=== PATIENT | female | born 1935 | race Caucasian/White ===

== ENCOUNTER 2017-09-25 12:59 | Emergency (ER) | payer MEDICARE ==
[2017-09-25 14:04] LABS: Bilirubin Negative (Negative); Blood, Urine Negative (Negative); Clarity CLEAR (Clear); Glucose, Urine (Dipstick) Negative (Negative); Leukocyte Trace (Negative); Nitrite Negative (Negative); Protein, Urine (Dipstick) Negative (Neg-Trace); Specific Gravity, Urine 1.011 (1.002-1.036); Urobilinogen 0.2 mg/dL (0.2-1.0)
[2017-09-25 14:07] LABS: Bacteria/HPF None Seen HPF (None Seen); Hyaline Casts/LPF 0-3 HYALINE CAST LPF (0-3 Hyaline); Pathc Cast-AUWi Flag 0.27 (0-2.49); RBC/HPF 0-3 HPF (0-3); Squamous Epithelial 0-3 HPF (0-3); WBC/HPF 0-3 HPF (0-3)
[2017-09-25] MEDS ORDERED: Bacitracin Zinc 1 Packet ONE (14:36)
--- NOTE | 2017-09-25 14:40 | RAD ---
AP PELVIS 1 VIEW: Date: 09/25/17 HISTORY: 81-year-old female with history of pain following a fall last night. COMPARISON: 02/04/15. FINDINGS: Total left hip replacement with incomplete visualization of the femoral portion of the prosthesis on this pelvis. Bilateral iliac vascular stents. No evidence for acute fracture or dislocation. IMPRESSION: No acute fracture or dislocation. Total left hip replacement. POS: OFF
--- NOTE | 2017-09-25 14:54 | RAD ---
RIGHT SHOULDER 3 VIEWS: HISTORY: An 81-year-old female with a history of right shoulder pain following a fall last night. IMPRESSION: Mild degenerative changes. No acute fracture or dislocation. POS: OFF
--- NOTE | 2017-09-25 14:58 | RAD ---
PORTABLE CHEST: DATE: 09/25/17. PROVIDED CLINICAL HISTORY: Chest pain. FINDINGS: Comparison 10/17/16. Cardiac silhouette remains enlarged. There is tortuosity and ectasis of the tho racic aorta. Vascular calcification involves the aortic arch. No focal consolidation, pleural fluid , or pneumothorax apparent. The bony thorax appears grossly intact. IMPRESSION: Cardiomegaly without evidence for an acute cardiopulmonary process. POS: [facility]
== END 2017-09-25 15:30 | disposition home or self-care (01) ==
LOC: ERS 12:59
DX: S40.011A Contusion of right shoulder, initial encounter (principal); S70.02XA Contusion of left hip, initial encounter; S70.01XA Contusion of right hip, initial encounter; E03.9 Hypothyroidism, unspecified; E78.5 Hyperlipidemia, unspecified; F32.9 Major depressive disorder, single episode, unspecified; I12.9 Hypertensive chronic kidney disease with stage 1 through stage 4 chronic kidney disease, or unspecified chronic kidney disease; N18.9 Chronic kidney disease, unspecified; Z87.891 Personal history of nicotine dependence; Z86.73 Personal history of transient ischemic attack (TIA), and cerebral infarction without residual deficits; Z79.02 Long term (current) use of antithrombotics/antiplatelets; Z79.899 Other long term (current) drug therapy; W19.XXXA Unspecified fall, initial encounter
CPT/HCPCS: 71045; 72170; 81003; 81015

== ENCOUNTER 2018-07-20 17:47 | Emergency (ER) | payer MEDICARE ==
[2018-07-20 18:25] LABS: #Basophils 0.1 thou/uL (0.0-0.2); #Eosinphils 0.2 thou/uL (0.0-0.7); #Lymphocytes 1.9 thou/uL (1.20-3.40); #Monocytes 0.3 thou/uL (0.11-0.59); #Neutrophils 4.8 thou/uL (1.40-6.50); %Basophils 1.1 % (0.0-1.0); %Eosinophils 2.1 % (0.0-10.0); %Lymphocytes 26.4 % (21.0-51.0); %Monocytes 4.7 % (0.0-10.0); %Neutrophils 65.8 % (42.0-75.0); Hemoglobin 11.9 g/dL (12.0-16.0); Mean Corpuscular Hemoglobin 31.6 pg (27.0-31.0); Mean Corpuscular Volume 95.5 fL (78.0-98.0); Mean Platelet Volume 8.9 fL (7.4-10.4); Platelet Count 321 thou/uL (130-400); RBC Distribution Width 11.8 % (11.5-14.5); Red Blood Cell (RBC) Count 3.76 mill/uL (4.20-5.40); White Blood Cell (WBC) Count 7.3 thou/uL (4.8-10.8)
[2018-07-20 18:50] LABS: ALT (SGPT) 17 U/L (8-55); AST (SGOT) 19 U/L (5-34); Albumin 3.8 g/dL (3.4-4.8); Alkaline Phosphatase 98 U/L (40-150); Anion Gap 15 mmol/L (10-20); BUN (Urea Nitrogen) 44 mg/dL (9.8-20.1); Bilirubin, Total 0.3 mg/dL (0.2-1.2); CK (CPK) 77 U/L (29-168); Calc. Creatinine Clearance 0 mL/min (70-130); Carbon Dioxide 20 mmol/L (23-31); Chloride 106 mmol/L (98-107); Estimated GFR-MDRD 24; Glucose 132 mg/dL (83-110); Lipase 39 U/L (8-78); Potassium 4.5 mmol/L (3.5-5.1); Protein, Total 6.8 g/dL (6.0-8.3); Sodium 136 mmol/L (136-145)
[2018-07-20 18:53] LABS: CKMB 3.3 ng/mL (0-6.6)
[2018-07-20 19:17] LABS: Bilirubin Negative (Negative); Blood, Urine Negative (Negative); Clarity CLEAR (Clear); Glucose, Urine (Dipstick) Negative (Negative); Leukocyte Negative (Negative); Nitrite Negative (Negative); Protein, Urine (Dipstick) Negative (Neg-Trace); Specific Gravity, Urine 1.012 (1.002-1.036); Urobilinogen 0.2 mg/dL (0.2-1.0); pH, Urine 5.5 (5.0-9.0)
--- NOTE | 2018-07-20 19:57 | RAD ---
PORTABLE CHEST: 07/20/2018 PROVIDED CLINICAL HISTORY: Cough. COMPARISON: 09/25/2017 FINDINGS: The cardiac silhouette appears enlarged. Vascular calcification involves the aortic arch. Prominenc e of pulmonary interstitium is similar to the prior study. There is no focal consolidation, pleural fluid, or pneumothorax apparent. IMPRESSION: Cardiomegaly without evidence for an acute cardiopulmonary process. POS: [facility]
--- NOTE | 2018-07-20 20:09 | CT ---
CT ABDOMEN AND PELVIS WITHOUT CONTRAST: 07/20/2018 PROVIDED CLINICAL HISTORY: Pain. FINDINGS: The visualized lung bases are free of significant opacity. There is a small focal saccular aneurysm involving the distal thoracic aorta, just proximal to the level of the diaphragmatic hiatus. This me asures approximately 1.5 cm. The solid abdominal organs are suboptimally evaluated, in the absence of IV contrast material. Left adrenal adenoma is noted. Vascular calcifications are seen involving each kidney. Vascular calcific ation is noted involving the abdominal aorta. Renal stent material is seen on the right. Postoperative changes of a prior cholecystectomy are seen, with associated mild prominence of the com mon duct. There is no bowel dilatation, inflammatory fat stranding, free fluid, or lymph node enlargement appar ent. No evidence for free air. The appendix appears normal. Bilateral external iliac stent materia l is noted. No evidence for urinary tract calculi or hydronephrosis. The osseous structures demonstrate no concerning lytic or blastic lesions. Degenerative changes are seen involving the spine. IMPRESSION: 1. No evidence for urinary tract calculi or hydronephrosis. 2. 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 3. Other chronic findings as above. POS: [facility]
--- NOTE | 2018-07-21 14:28 | EKG ---
Test Reason : Blood Pressure : / mmHG Vent. Rate : 058 BPM Atrial Rate : 058 BPM P-R Int : 184 ms QRS Dur : 078 ms QT Int : 448 ms P-R-T Axes : 026 012 042 degrees QTc Int : 439 ms Sinus bradycardia Otherwise normal ECG Confirmed by DIANE MAURO, IKE ([id number]), newspaper or periodical editor FRANCESCO MARKHAM ([id number]) on 07/21/2018 2:28:22 PM Referred By: Confirmed By:IKE CONTRERAS MD
== END 2018-07-20 20:12 | disposition home or self-care (01) ==
LOC: ERS 17:47
DX: R41.82 Altered mental status, unspecified (principal); F03.90 Unspecified dementia, unspecified severity, without behavioral disturbance, psychotic disturbance, mood disturbance, and anxiety; E86.0 Dehydration; I25.10 Atherosclerotic heart disease of native coronary artery without angina pectoris; E03.9 Hypothyroidism, unspecified; E78.5 Hyperlipidemia, unspecified; I10 Essential (primary) hypertension; Z86.73 Personal history of transient ischemic attack (TIA), and cerebral infarction without residual deficits; F32.9 Major depressive disorder, single episode, unspecified; Z87.891 Personal history of nicotine dependence; Z79.899 Other long term (current) drug therapy
CPT/HCPCS: 36415; 51701; 71045; 74176; 80053; 81003; 82550; 82553; 83605; 83690; 83880; 84484; 85025; 87040; 87086; 93005; 96360; A4353

== ENCOUNTER 2018-09-23 13:45 | Outpatient (CLI) | payer MEDICARE | END 2018-09-23 13:46 | disposition home or self-care (01) | LOC: BICMAMMO 13:45 | PROVIDERS: ATTEND Family Medicine | DX: Z12.31 Encounter for screening mammogram for malignant neoplasm of breast (principal); R92.1 Mammographic calcification found on diagnostic imaging of breast; Z85.3 Personal history of malignant neoplasm of breast | CPT/HCPCS: 77063; 77067 ==

== ENCOUNTER 2018-11-28 21:49 | Inpatient (IN) | payer MEDICARE ==
[2018-11-28 23:03] LABS: ALT (SGPT) 19 U/L (8-55); AST (SGOT) 21 U/L (5-34); Albumin 3.4 g/dL (3.4-4.8); Alkaline Phosphatase 119 U/L (40-150); Anion Gap 15 mmol/L (10-20); BUN (Urea Nitrogen) 35 mg/dL (9.8-20.1); Bilirubin, Total 0.2 mg/dL (0.2-1.2); Calc. Creatinine Clearance 0 mL/min (70-130); Carbon Dioxide 23 mmol/L (23-31); Chloride 105 mmol/L (98-107); Estimated GFR-MDRD 34; Globulin 2.9 g/dL (2.4-3.5); Glucose 98 mg/dL (83-110); Potassium 5.2 mmol/L (3.5-5.1); Protein, Total 6.3 g/dL (6.0-8.3); Sodium 138 mmol/L (136-145)
[2018-11-28] MEDS ORDERED: Aspirin Chewable 81 MG TAB ONE (23:16)
[2018-11-28] MEDS ORDERED: Azithromycin 500 MG VIAL ONE (23:16)
[2018-11-29 01:57] LABS: Troponin I 0.019 ng/mL (< 0.028)
[2018-11-29] MEDS ORDERED: Sodium Chloride 0.45% 1,000 ML IV SCH (05:45)
[2018-11-29 05:58] LABS: Troponin I 0.025 ng/mL (< 0.028)
[2018-11-29 06:46] VITALS: BMI 22.1
[2018-11-29 09:19] LABS: Anion Gap 16 mmol/L (10-20); BUN (Urea Nitrogen) 31 mg/dL (9.8-20.1); Calc. Creatinine Clearance 30 mL/min (70-130); Carbon Dioxide 19 mmol/L (23-31); Chloride 105 mmol/L (98-107); Estimated GFR-MDRD 40; Glucose 105 mg/dL (83-110); Potassium 4.2 mmol/L (3.5-5.1); Sodium 136 mmol/L (136-145)
[2018-11-29] MEDS: Enoxaparin Sodium 30 MG/0.3 ML SYRINGE SC SCH (09:58)
[2018-11-29] MEDS: cefTRIAXone\\ROCEPHIN 1 GM in Sodium Chloride 0.9% 100 ML IVPB SCH (09:58)
[2018-11-29] MEDS: Amlodipine 5 MG TAB PO SCH (09:59)
[2018-11-29] MEDS: Clopidogrel Bisulfate 75 MG TAB PO SCH (09:59)
[2018-11-29] MEDS: hydrALAZINE 25 MG TAB PO SCH ×2 (10:00→21:03)
--- NOTE | 2018-11-29 10:03 | HP ---
PRIMARY CARE PHYSICIAN: Anayeli Tamayo DO CHIEF COMPLAINT: Increasing malaise and weakness. HISTORY OF PRESENT ILLNESS: The patient with history of dementia and some confusion, was unable to provide any significant history. Following history was extracted from review of medical record. The patient reportedly was brought to the hospital on November 28 by daughter due to worsening malaise, weakness, and poor appetite as well as poor oral intake since about 3 days prior to presentation. Daughter also reported that the patient had low SpO2 of 90 on room air at home prior to presentation to the ER. There was no history of fever, chills, or cough. The patient initially presented to [facility], where chest x-ray showed features suggestive of right middle and lower lobe pneumonia. The patient was given antibiotics and transported over to [facility] for further evaluation and treatment. The patient is confused, but is at least oriented to self and place. She denied fever, cough, nausea, vomiting, or abdominal pain. She, however, complained of being afraid. PAST MEDICAL HISTORY: 1. Dementia. 2. Left breast cancer. 3. Coronary artery disease, status post stent placement. 4. Hypertension. 5. Prior cerebrovascular accident. 6. CKD, stage 3 to 4. 7. Hypothyroidism. 8. Peripheral vascular disease. PAST SURGICAL HISTORY: 1. Left carotid endarterectomy. 2. Hip surgery. 3. Hysterectomy. 4. Tonsillectomy. 5. Left breast reconstruction. FAMILY HISTORY: This could not be obtained due to the patient's factors, but however, this seems to be unrelated and noncontributory. SOCIAL HISTORY: The patient lives with daughter. She is a former smoker, who quit about 10 years ago. Denied alcohol or recreational drug use. ALLERGIES: NO KNOWN DRUG ALLERGIES REPORTED. HOME MEDICATIONS: 1. Hydralazine 25 mg p.o. b.i.d. 2. Lisinopril 20 mg p.o. daily. 3. Plavix 75 mg p.o. daily. 4. Lexapro 10 mg p.o. daily at bedtime. 5. Zetia 10 mg p.o. daily at bedtime. 6. Levothyroxine 50 mcg p.o. daily in the morning. 7. Namenda 10 mg p.o. daily. 8. Simvastatin 40 mg p.o. daily at bedtime. REVIEW OF SYSTEMS: This is grossly limited due to the patient's factors. However, 12-point review of system performed was negative, other than pertinent positives and negatives included in the history of present illness. PHYSICAL EXAMINATION: VITAL SIGNS: Initial vitals on presentation to [facility] showed blood pressure of 143/69, pulse of 67, respiratory rate of 22, temperature of 98.7, and SpO2 of 90 on room air. Current vitals today at 7:56 a.m. on November 29, 2018, showed temperature of 98.2, pulse of 76, respiratory rate of 20, SpO2 of 94 on nasal cannula oxygen, and blood pressure of 184/84. GENERAL: Thin, elderly female, in no obvious distress. Afebrile. Anicteric. Acyanotic. HEENT: Normocephalic, atraumatic. Pupils are equal and reacting to light. Oral mucosa is moist. NECK: Supple, nontender with full range of motion. No masses noted. CARDIOVASCULAR: Regular rhythm and rate with normal heart sounds 1 and 2. No obvious murmur was appreciated. RESPIRATORY: Fair air entry bilaterally with no obvious crackle or rhonchi. Some transmitted sounds noted on right mid and lower zones. There is no use of accessory muscles. GASTROINTESTINAL: Full, soft, nontender, and nondistended with normal bowel sounds. EXTREMITIES: Grossly normal looking, atraumatic with no obvious edema, erythema, or cyanosis. NEUROLOGIC: Conscious and alert. Oriented at least to person and place. The patient has some confusion and memory lapses. Moves all extremities. SKIN: Grossly normal looking and appropriate for age with no erythema or rash. DIAGNOSTIC DATA: CBC showed WBC count of 9.5, hemoglobin of 12.6, MCV of 92.6, and platelets of 483. BMP performed on November 28, 2018 showed sodium 138, potassium 5.2, chloride 105, CO2 of 23, BUN 35, creatinine 1.48, calcium 9.0, total bilirubin 0.2, AST 21, ALT 19, alkaline phosphatase 119, total protein 6.3, albumin 3.4, and globulin 2.9. Of note, review of records showed that creatinine ranges from 1.4 to 2 previously. On presentation to the ED, the initial troponin was 0.03, which has trended down to normal with last troponin of 0.25. Lactic acid was 1.1. Urinalysis on November 28 was unremarkable with negative glucose, ketones, blood, nitrites, or leukocyte esterase. Chest x-ray performed on November 28, 2018, when compared with x-ray of July 20, 2018 showed infiltrates seen in the right upper lobe and right lung base. EKG showed normal sinus rhythm with no obvious ischemic changes. ASSESSMENT: 1. Acute respiratory insufficiency. 2. Right lower lobe pneumonia. 3. Hyperkalemia. This most likely is related to chronic kidney disease and use of CHARITY inhibitor. 4. Physical deconditioning. 5. Elevated troponin: Mild. Most likely due to demand ischemia from pneumonia. 6. Hypertension: Control is suboptimal. 7. Hypothyroidism, on replacement therapy. 8. History of dementia, on Namenda. 9. Chronic kidney disease, stage 3: Seems to be stable. PLAN: 1. We will start the patient on antibiotic therapy with Rocephin and azithromycin. We will also start bronchodilators and Mucinex. Oxygen supplementation will be provided and we will wean as tolerated. We will also hold lisinopril and start the patient on amlodipine for blood pressure control. We will recheck BMP and potassium and monitor renal function. 2. DVT prophylaxis with Lovenox will be provided. 3. Heart-healthy diet will be commenced. 4. Ethics: We will make the patient full code and she is not deemed to be competent at this time. We will discuss code status with the patient's daughter and adjust as needed. Diet as tolerated. Job ID: [id number]
[2018-11-29] MEDS: Azithromycin 500 MG in Sodium Chloride 0.9% 250 ML 250 ML IVPB SCH (11:21)
[2018-11-29] MEDS: Acetaminophen 325 MG TAB PO PRN (11:26)
[2018-11-29] MEDS: Ondansetron ODT 4 MG TAB PO PRN (12:54)
[2018-11-29] MEDS: Escitalopram Oxalate 10 mg Tablet PO SCH (21:02)
[2018-11-29] MEDS: Simvastatin 20 MG TAB PO SCH (21:02)
[2018-11-29] MEDS: Ezetimibe 10 MG TAB PO SCH (21:02)
[2018-11-29] MEDS: Melatonin 3 MG TAB PO PRN (21:05)
[2018-11-29] MEDS: guaiFENesin ER 600 MG TAB PO SCH (21:05)
[2018-11-30] MEDS: Levothyroxine Sodium 50 MCG TAB PO SCH (05:02)
[2018-11-30 05:17] LABS: #Basophils 0.1 thou/uL (0.0-0.2); #Eosinphils 0.3 thou/uL (0.0-0.7); #Lymphocytes 1.1 thou/uL (1.20-3.40); #Monocytes 0.7 thou/uL (0.11-0.59); #Neutrophils 6.6 thou/uL (1.40-6.50); %Basophils 0.6 % (0.0-1.0); %Eosinophils 2.9 % (0.0-10.0); %Lymphocytes 12.9 % (21.0-51.0); %Monocytes 8.1 % (0.0-10.0); %Neutrophils 75.4 % (42.0-75.0); Hemoglobin 9.7 g/dL (12.0-16.0); Mean Corpuscular HGB CONC 32.2 g/dL (32.0-36.0); Mean Corpuscular Hemoglobin 30.3 pg (27.0-31.0); Mean Corpuscular Volume 94.3 fL (78.0-98.0); Mean Platelet Volume 7.7 fL (7.4-10.4); Platelet Count 375 thou/uL (130-400); RBC Distribution Width 10.9 % (11.5-14.5); Red Blood Cell (RBC) Count 3.21 mill/uL (4.20-5.40); White Blood Cell (WBC) Count 8.8 thou/uL (4.8-10.8)
[2018-11-30 05:35] LABS: Anion Gap 13 mmol/L (10-20); BUN (Urea Nitrogen) 27 mg/dL (9.8-20.1); Calc. Creatinine Clearance 29 mL/min (70-130); Calcium 8.7 mg/dL (7.8-10.44); Carbon Dioxide 22 mmol/L (23-31); Chloride 104 mmol/L (98-107); Estimated GFR-MDRD 38; Glucose 102 mg/dL (83-110); Potassium 4.7 mmol/L (3.5-5.1); Sodium 134 mmol/L (136-145)
[2018-11-30 08:37] LABS: Iron 19 ug/dL (50-170); Iron Binding Capacity, Total 170 mcg/dL (265-497)
[2018-11-30] MEDS: cefTRIAXone\\ROCEPHIN 1 GM in Sodium Chloride 0.9% 100 ML IVPB SCH (08:42)
[2018-11-30] MEDS: guaiFENesin ER 600 MG TAB PO SCH ×2 (08:43→22:00)
[2018-11-30] MEDS: hydrALAZINE 25 MG TAB PO SCH ×2 (08:43→22:01)
[2018-11-30] MEDS: Clopidogrel Bisulfate 75 MG TAB PO SCH (08:43)
[2018-11-30] MEDS: Amlodipine 5 MG TAB PO SCH (08:44)
[2018-11-30] MEDS: Enoxaparin Sodium 30 MG/0.3 ML SYRINGE SC SCH (08:45)
[2018-11-30] MEDS ORDERED: Prevnar 13-Val Conj/PF 0.5 ML SYRINGE IM ONE ×2 (09:00→12:00)
[2018-11-30] MEDS: Azithromycin 500 MG in Sodium Chloride 0.9% 250 ML 250 ML IVPB SCH (09:45)
[2018-11-30] MEDS ORDERED: Azithromycin 250 MG TAB PO SCH (11:45)
--- NOTE | 2018-11-30 15:24 | PDOC.PN ---
- Subjective Encounter Start Date: 11/30/18 Encounter Start Time: 15:23 Subjective: No new problem -: Still on oxygen, -: No fever or chest pain. - Objective Resuscitation Status - Order Detail: 11/29/18 08:45 Resuscitation Status Routine Resuscitation Status: FULL: Full Resuscitation Vital Signs & Weight: Vital Signs (12 hours) Temp Pulse Resp BP BP Pulse Ox 11/30/18 13:30 94 L 11/30/18 12:43 91 L 11/30/18 11:53 97.4 F L 89 16 147/65 H 87 L 11/30/18 08:44 87 136/61 11/30/18 08:43 87 136/61 11/30/18 08:00 95 11/30/18 07:53 97.4 F L 77 24 H 128/67 95 11/30/18 07:20 74 16 11/30/18 04:00 98.5 F 76 18 136/67 94 L Weight Weight 125 lb 4 oz I&O: 11/29/18 11/30/18 12/01/18 06:59 06:59 06:59 Intake Total 1425 Output Total 1025 Balance 400 Result Diagrams: 11/30/18 04:47 11/30/18 04:47 Additional Labs: Accuchecks 11/30/18 13:07 POC Glucose 110 Phys Exam - Physical Examination Constitutional: NAD afebrile but fatigued HEENT: PERRLA Neck: supple fair air entry with transmitted sound Cardiovascular: RRR Gastrointestinal: soft, non-tender, no distention, positive bowel sounds Musculoskeletal: no edema, pulses present Neurological: non-focal awake and conversation. Memory lapses and confusion noted Moving all limbs but weakly Dx/Plan (1) Acute respiratory failure with hypoxia Code(s): J96.01 - ACUTE RESPIRATORY FAILURE WITH HYPOXIA Status: Acute (2) Right lower lobe pneumonia Code(s): J18.1 - LOBAR PNEUMONIA, UNSPECIFIED ORGANISM Status: Acute (3) Hyperkalemia Code(s): E87.5 - HYPERKALEMIA Status: Acute Comment: Resolved. (4) Positive blood culture Code(s): R78.81 - BACTEREMIA Status: Acute (5) CKD (chronic kidney disease) stage 3, GFR 30-59 ml/min Code(s): N18.3 - CHRONIC KIDNEY DISEASE, STAGE 3 (MODERATE) Status: Acute Comment: Possibility of EFRA is considered. 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 ? due to correction of hemoconcentration supereimposed on chronic iron deficiency anemia. Iron chemistry is suggestive of iron deficiency - Plan Continue antibiotics, bronchodilators, mucinex and oxygen supplementation -: Wean oxygen as tolerated. Encourage oral intake. -: Start gentle hydration given poor oral intake. -: PT to continue. Continue to hold SELENE cecily -: Repeat CBC, bmp and CXR in the am. * .
[2018-11-30] MEDS: Acetaminophen 325 MG TAB PO PRN (16:54)
[2018-11-30] MEDS: Simvastatin 20 MG TAB PO SCH (21:59)
[2018-11-30] MEDS: Ezetimibe 10 MG TAB PO SCH (21:59)
[2018-11-30] MEDS: Melatonin 3 MG TAB PO PRN (21:59)
[2018-11-30] MEDS: Escitalopram Oxalate 10 mg Tablet PO SCH (22:00)
[2018-12-01 05:09] LABS: #Basophils 0.1 thou/uL (0.0-0.2); #Eosinphils 0.3 thou/uL (0.0-0.7); #Lymphocytes 1.2 thou/uL (1.20-3.40); #Monocytes 0.9 thou/uL (0.11-0.59); #Neutrophils 7.4 thou/uL (1.40-6.50); %Basophils 0.7 % (0.0-1.0); %Eosinophils 3.3 % (0.0-10.0); %Lymphocytes 12.4 % (21.0-51.0); %Monocytes 8.7 % (0.0-10.0); Mean Corpuscular HGB CONC 30.3 g/dL (32.0-36.0); Mean Corpuscular Hemoglobin 28.7 pg (27.0-31.0); Mean Corpuscular Volume 94.7 fL (78.0-98.0); Mean Platelet Volume 7.7 fL (7.4-10.4); Platelet Count 411 thou/uL (130-400); Red Blood Cell (RBC) Count 3.47 mill/uL (4.20-5.40); White Blood Cell (WBC) Count 9.8 thou/uL (4.8-10.8)
[2018-12-01] MEDS: Levothyroxine Sodium 50 MCG TAB PO SCH (05:19)
[2018-12-01 05:26] LABS: Anion Gap 15 mmol/L (10-20); BUN (Urea Nitrogen) 26 mg/dL (9.8-20.1); Calc. Creatinine Clearance 26 mL/min (70-130); Calcium 8.6 mg/dL (7.8-10.44); Carbon Dioxide 22 mmol/L (23-31); Chloride 104 mmol/L (98-107); Estimated GFR-MDRD 34; Glucose 95 mg/dL (83-110); Potassium 4.6 mmol/L (3.5-5.1); Sodium 136 mmol/L (136-145)
[2018-12-01] MEDS: Clopidogrel Bisulfate 75 MG TAB PO SCH (09:45)
[2018-12-01] MEDS: cefTRIAXone\\ROCEPHIN 1 GM in Sodium Chloride 0.9% 100 ML IVPB SCH (09:45)
[2018-12-01] MEDS: guaiFENesin ER 600 MG TAB PO SCH ×2 (09:45→21:32)
[2018-12-01] MEDS: Amlodipine 5 MG TAB PO SCH (09:46)
[2018-12-01] MEDS: hydrALAZINE 25 MG TAB PO SCH ×2 (09:49→21:32)
[2018-12-01] MEDS: Enoxaparin Sodium 30 MG/0.3 ML SYRINGE SC SCH (09:55)
--- NOTE | 2018-12-01 10:11 | RAD ---
PA AND LATERAL VIEWS CHEST: HISTORY: Hypoxia, pneumonia. FINDINGS: Comparison is made with the exam of 11/28/2018. The heart size is normal. Patchy infiltrates in the right upper lobe and the right lung base are aga in noted. No pneumothoraces or large pleural effusions are seen. Small pleural effusions may be pre sent posteriorly. IMPRESSION: Pneumonia. POS: [facility]
[2018-12-01] MEDS: Ondansetron PF 4 MG/2 ML Vial IVP PRN (10:36)
[2018-12-01] MEDS: Azithromycin 500 MG in Sodium Chloride 0.9% 250 ML 250 ML IVPB SCH (10:39)
[2018-12-01] MEDS: Acetaminophen 325 MG TAB PO PRN (16:54)
--- NOTE | 2018-12-01 17:24 | PDOC.PN ---
- Subjective Encounter Start Date: 12/01/18 Encounter Start Time: 11:23 Subjective: Seen and examined. -: Still coughing and on oxygen. -: denied fever or chest pain. - Objective Resuscitation Status - Order Detail: 11/29/18 08:45 Resuscitation Status Routine Resuscitation Status: FULL: Full Resuscitation Vital Signs & Weight: Vital Signs (12 hours) Temp Pulse Pulse Pulse Resp BP BP 12/01/18 15:38 99.1 F 87 28 H 12/01/18 12:52 82 16 12/01/18 12:00 99 F 95 36 H 12/01/18 10:56 93 87 135/64 12/01/18 09:49 87 133/66 12/01/18 09:46 87 133/66 12/01/18 08:00 12/01/18 07:50 99.1 F 96 16 12/01/18 06:37 84 16 12/01/18 05:51 BP BP Pulse Ox 12/01/18 15:38 114/64 85 L 12/01/18 12:52 97 12/01/18 12:00 109/57 L 92 L 12/01/18 10:56 119/57 L 12/01/18 09:49 12/01/18 09:46 12/01/18 08:00 92 L 12/01/18 07:50 130/63 89 L 12/01/18 06:37 93 L 12/01/18 05:51 93 L Weight Weight 125 lb 4 oz I&O: 11/30/18 12/01/18 12/02/18 06:59 06:59 06:59 Intake Total 1425 718 353 Output Total 1025 750 Balance 400 -32 353 Result Diagrams: 12/01/18 04:37 12/01/18 04:37 Phys Exam - Physical Examination Constitutional: NAD afebrile HEENT: moist MMs Neck: supple fair air entrty with right sided crackles and few scattered rhonchi Cardiovascular: RRR Gastrointestinal: soft, non-tender, no distention, positive bowel sounds Musculoskeletal: no edema, pulses present Neurological: non-focal, moves all 4 limbs awake and conversational. Memory lapses noted Dx/Plan (1) Acute respiratory failure with hypoxia Code(s): J96.01 - ACUTE RESPIRATORY FAILURE WITH HYPOXIA Status: Acute (2) Right lower lobe pneumonia Code(s): J18.1 - LOBAR PNEUMONIA, UNSPECIFIED ORGANISM Status: Acute (3) Hyperkalemia Code(s): E87.5 - HYPERKALEMIA Status: Acute Comment: Resolved. (4) Positive blood culture Code(s): R78.81 - BACTEREMIA Status: Acute (5) CKD (chronic kidney disease) stage 3, GFR 30-59 ml/min Code(s): N18.3 - CHRONIC KIDNEY DISEASE, STAGE 3 (MODERATE) Status: Acute Comment: Possibility of EFRA is considered. 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 ? due to correction of hemoconcentration supereimposed on chronic iron deficiency anemia. Iron chemistry is suggestive of iron deficiency - Plan Broadened antibiotics by substituting ceftriaxone/azithromyci with levaquin -: As CXR showed persistent if not worse Right sided pneumonia -: and there has been no significant improvement -: Continue other treatments. * .
[2018-12-01] MEDS: Budesonide 0.5 MG/2 ML NEB INH SCH (19:00)
[2018-12-01] MEDS: Simvastatin 20 MG TAB PO SCH (21:32)
[2018-12-01] MEDS: Ezetimibe 10 MG TAB PO SCH (21:32)
[2018-12-02] MEDS: Melatonin 3 MG TAB PO PRN ×2 (01:09→21:45)
[2018-12-02] MEDS: Acetaminophen 325 MG TAB PO PRN ×2 (01:12→21:44)
[2018-12-02] MEDS ORDERED: traMADol HCl 50 MG TAB PO SCH (02:30)
[2018-12-02] MEDS ORDERED: Sodium Chloride 0.9% 1,000 ML IV SCH (02:45)
[2018-12-02] MEDS: Levothyroxine Sodium 50 MCG TAB PO SCH (06:01)
[2018-12-02 06:15] LABS: Anion Gap 12 mmol/L (10-20); BUN (Urea Nitrogen) 26 mg/dL (9.8-20.1); Calc. Creatinine Clearance 24 mL/min (70-130); Calcium 8.7 mg/dL (7.8-10.44); Carbon Dioxide 24 mmol/L (23-31); Chloride 102 mmol/L (98-107); Estimated GFR-MDRD 31; Glucose 103 mg/dL (83-110); Potassium 4.6 mmol/L (3.5-5.1); Sodium 133 mmol/L (136-145)
[2018-12-02] MEDS: Budesonide 0.5 MG/2 ML NEB INH SCH ×2 (06:24→19:29)
[2018-12-02] MEDS: Sodium Chloride 0.9% 1,000 ML IV SCH ×2 (09:42→19:24)
[2018-12-02] MEDS: hydrALAZINE 25 MG TAB PO SCH (09:42)
[2018-12-02] MEDS: Amlodipine 5 MG TAB PO SCH (09:44)
[2018-12-02] MEDS: Enoxaparin Sodium 30 MG/0.3 ML SYRINGE SC SCH (09:45)
[2018-12-02] MEDS: Clopidogrel Bisulfate 75 MG TAB PO SCH (09:45)
[2018-12-02] MEDS: guaiFENesin ER 600 MG TAB PO SCH ×2 (10:32→21:45)
[2018-12-02] MEDS ORDERED: guaiFENesin ER 600 MG TAB PO SCH ×2 (10:59→11:15)
--- NOTE | 2018-12-02 11:04 | PDOC.PN ---
- Subjective Encounter Start Date: 12/02/18 Encounter Start Time: 11:00 Subjective: Feeling better. More alert today. -: No fever. Still coughing but afebrile. - Objective Resuscitation Status - Order Detail: 11/29/18 08:45 Resuscitation Status Routine Resuscitation Status: FULL: Full Resuscitation Vital Signs & Weight: Vital Signs (12 hours) Temp Pulse Pulse Resp BP BP BP 12/02/18 09:51 79 107/54 L 12/02/18 09:44 79 107/54 L 12/02/18 09:42 79 107/54 L 12/02/18 07:56 98.3 F 80 22 H 107/50 L 12/02/18 06:24 12/02/18 06:23 74 20 12/02/18 04:00 97.9 F 75 18 100/53 L 12/02/18 02:29 98 F 103/52 L 12/02/18 01:10 24 H 12/02/18 00:00 98.3 F 83 20 136/65 Pulse Ox 12/02/18 09:51 12/02/18 09:44 12/02/18 09:42 12/02/18 07:56 92 L 12/02/18 06:24 91 L 12/02/18 06:23 91 L 12/02/18 04:00 92 L 12/02/18 02:29 12/02/18 01:10 93 L 12/02/18 00:00 91 L Weight Weight 125 lb 4 oz I&O: 12/01/18 12/02/18 12/03/18 06:59 06:59 06:59 Intake Total 718 1736 Output Total 750 650 Balance -32 1086 Result Diagrams: 12/01/18 04:37 12/02/18 05:19 Phys Exam - Physical Examination Constitutional: NAD afebrile HEENT: PERRLA, moist MMs Neck: supple Respiratory: no rhonchi fair air entry with crackles mostly on the right Cardiovascular: RRR Gastrointestinal: soft, non-tender, no distention, positive bowel sounds Musculoskeletal: no edema, pulses present awake and conversational. Memory lapses noted. Dx/Plan (1) Acute respiratory failure with hypoxia Code(s): J96.01 - ACUTE RESPIRATORY FAILURE WITH HYPOXIA Status: Acute Comment: Still on oxygen (2) Right lower lobe pneumonia Code(s): J18.1 - LOBAR PNEUMONIA, UNSPECIFIED ORGANISM Status: Acute (3) Hyperkalemia Code(s): E87.5 - HYPERKALEMIA Status: Acute Comment: Resolved. (4) Positive blood culture Code(s): R78.81 - BACTEREMIA Status: Acute (5) CKD (chronic kidney disease) stage 3, GFR 30-59 ml/min Code(s): N18.3 - CHRONIC KIDNEY DISEASE, STAGE 3 (MODERATE) Status: Acute Comment: Possibility of EFRA is considered. Creat is trending up. 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 ? due to correction of hemoconcentration supereimposed on chronic iron deficiency anemia. Iron chemistry is suggestive of iron deficiency (13) Paroxysmal atrial fibrillation Code(s): I48.0 - PAROXYSMAL ATRIAL FIBRILLATION Status: Acute Comment: Questionable. Lasted for 12 seconds noticed on tele. Occured while patient was getting bed bath. She also has Pneumonia on treatment. Rate remained controlled. - Plan Continue levaquin -: increase mucinex to 1200 bid -: Wean off oxygen. -: Start IVF due to increasing creat/bun. -: Consult cardiology re: anticoagulation for A fib. * .
[2018-12-02 11:43] LABS: Troponin I 0.013 ng/mL (< 0.028)
--- NOTE | 2018-12-02 14:58 | PQF ---
CLINICAL DOCUMENTATION IMPROVEMENT CLARIFICATION FORM: ICD-10 Updated PLEASE DO AN ADDENDUM TO THE PROGRESS NOTE WITH ANY DOCUMENTATION UPDATES OR ADDITIONS AND CARRY THROUGH TO DC SUMMARY. THANK YOU. DATE: 12/02/2018 ATTN: Dr. Marquez Please exercise your independent, professional judgment in responding to the clarification form. Clinical indicators are provided on the bottom of this form for your review Please check appropriate box(es): [ ] Sepsis due to Pneumonia. [ ] Severe sepsis with acute organ dysfunction of: (Examples: respiratory failure, encephalopathy, acute kidney failure,) [ ] Localized infection without sepsis [ X ] Other diagnosis :Right lower lobe Pneumonia [ ] Unable to determine In addition, please specify: Present on Admission (POA): [ X ] Yes [ ] No [ ] Unable to determine For continuity of documentation, please document condition throughout progress notes and discharge summary. Thank You. CLINICAL INDICATORS - SIGNS / SYMPTOMS / LABS H&P: Resp. rate of 22. SpO2 of 90 on room air. PN 11/30: Acute respiratory failure with hypoxia Right lower lobe pneumonia Positive blood culture CKD 3. Possibility of EFRA is considered. PN 12/01: Right lower lobe pneumonia Broadened antibiotics by substituting ceftriaxone/azithromycin with Levaquin -As CXR showed persistent if not worse Right sided pneumonia RISKS: H&P 11/29: 83 yo. Hx of Dementia. CAD. CKD 3-4. Right lower lobe pneumonia. TREATMENT: MAR: Order 11/29-12/01: Rocephin 1 gm IV. MAR: Order 11/29-12/01: Zithromax 500mg IV MAR: Order 12/02: Levaquin 450mg IV q 48 hrs MAR: Order 12/02: NS IV 100 ml/hr Thank you, Blanka (This form is maintained as a part of the permanent medical record) 2014 [employer]. All Rights Reserved Blanka Rayo RN, BSN [email or web address] Office: [phone] [facility]
[2018-12-02] MEDS: Ondansetron PF 4 MG/2 ML Vial IVP PRN (20:59)
[2018-12-02] MEDS: Ezetimibe 10 MG TAB PO SCH (21:45)
[2018-12-02] MEDS: Simvastatin 20 MG TAB PO SCH (21:45)
--- NOTE | 2018-12-03 01:10 | CON ---
DATE OF CONSULTATION: SUBJECTIVE: Olinda Avila is an 83-year-old white female, admitted for respiratory insufficiency. She has a longstanding cardiac history and underwent cardiac catheterization in May [address] Cuenca. She had a totally occluded proximal right coronary artery that filled retrograde, ejection fraction was 70% . She underwent another catheterization by Dr. Cuenca in July 2000, which essentially showed the same findings. In 2005, she underwent catheterization by Dr. Villareal with similar findings. She had a normal nuclear scan in February 2011. In October 2013, she had a right-sided stroke. I initially assumed her care in February 2016. Pertinent recent evaluations are echocardiogram in August 2016, which revealed ejection fraction of 55% to 60% with mild mitral regurgitation, aortic valve sclerosis, mild aortic regurgitation, mild tricuspid regurgitation, mild pulmonic regurgitation. She underwent cardiac PET scan in May 2018, which was normal without evidence of ischemia. She now was admitted with increased shortness of breath, felt to have pneumonia and is being treated with antibiotics. She cannot give an adequate history. She denies any chest discomfort or palpitations to me. She did have 11-second run of probable atrial fibrillation which was very irregularly irregular with rate up to 150 to 160. PAST MEDICAL HISTORY: Stroke in October 2013 from attempted carotid stent procedure; chronic kidney disease; hypothyroidism; hypertension; dyslipidemia; peripheral vascular disease, status post iliac stents; hypertension; coronary artery disease; dementia. PAST SURGICAL HISTORY: Bilateral iliac stent placement, left carotid endarterectomy, hip surgery, hysterectomy, tonsillectomy, left breast reconstruction. SOCIAL HISTORY: She smoked one pack per day, but stopped 2 to 3 years ago. She does not drink. MEDICATIONS: 1. Aspirin 81 daily. 2. Plavix 75 daily. 3. Hydralazine 25 b.i.d. 4. Lisinopril 20 mg daily. 5. Lexapro 10 mg at bedtime. 6. Zetia 10 mg at bedtime. 7. Levothyroxine 50 mcg daily. 8. Namenda 10 mg daily. 9. Simvastatin 40 at bedtime. ALLERGIES: NONE. REVIEW OF SYSTEMS: Difficult to obtain due to patient's baseline dementia. PHYSICAL EXAMINATION: VITAL SIGNS: Blood pressure 102/49, pulse of 88. HEENT: PERRL. NECK: Supple. CHEST: Reveals occasional rhonchi. CARDIOVASCULAR EXAMINATION: S1, S2 normal without any S3, S4, or murmurs. ABDOMEN: Normal bowel sounds without tenderness, organomegaly. EXTREMITIES: Reveal no clubbing, cyanosis, or edema. NEUROLOGIC: Grossly intact. SKIN: Warm and dry. LABORATORY DATA: EKG revealed normal sinus rhythm, occasional PVC on admission. Chest x-ray revealed infiltrates in the right upper lobe and right lung base consistent with pneumonia. White count 9800, hemoglobin 10.0, hematocrit 32.9, platelets 411,000. Sodium 133, potassium 4.6, chloride 102, carbon dioxide 24, BUN 26, creatinine 1.61. Troponin I is normal. IMPRESSION: 1. Short run of paroxysmal atrial fibrillation approximately 10 to 11 seconds. 2. History of hypertension. However, she has been borderline hypotensive thus far during this admission. 3. Chronic kidney disease, lisinopril has been discontinued this admission. 4. Hypercholesterolemia. 5. History of coronary artery disease with totally occluded right coronary artery. 6. Peripheral vascular disease with carotid endarterectomy, bilateral iliac stents. 7. Dementia. 8. Hypothyroidism. 9. Anxiety and depression. 10. Former smoker. PLAN: The patient's current blood pressure is low, which certainly may contribute to decreased renal perfusion and increase in her creatinine and BUN. I would simplify her current regimen and would discontinue the amlodipine and the hydralazine. Instead, would just place her on low-dose beta cecily, which hopefully will suppress her atrial arrhythmias. Job ID: [id number] [facility]
[2018-12-03] MEDS: Acetaminophen 325 MG TAB PO PRN ×3 (01:30→18:37)
[2018-12-03] MEDS: Ondansetron PF 4 MG/2 ML Vial IVP PRN (04:52)
[2018-12-03 05:24] LABS: Anion Gap 13 mmol/L (10-20); BUN (Urea Nitrogen) 28 mg/dL (9.8-20.1); Calc. Creatinine Clearance 23 mL/min (70-130); Calcium 8.8 mg/dL (7.8-10.44); Carbon Dioxide 22 mmol/L (23-31); Chloride 104 mmol/L (98-107); Estimated GFR-MDRD 29; Glucose 89 mg/dL (83-110); Sodium 134 mmol/L (136-145)
[2018-12-03] MEDS: Budesonide 0.5 MG/2 ML NEB INH SCH ×2 (06:02→18:46)
[2018-12-03] MEDS: Sodium Chloride 0.9% 1,000 ML IV SCH (06:13)
[2018-12-03] MEDS: Levothyroxine Sodium 50 MCG TAB PO SCH (06:13)
--- NOTE | 2018-12-03 08:55 | PDOC.PN ---
- Subjective Encounter Start Date: 12/03/18 Encounter Start Time: 08:53 Subjective: Chest congestion and Hypoxia is worse. -: remained afebrile - Objective Resuscitation Status - Order Detail: 11/29/18 08:45 Resuscitation Status Routine Resuscitation Status: FULL: Full Resuscitation Vital Signs & Weight: Vital Signs (12 hours) Temp Pulse Resp BP Pulse Ox 12/03/18 07:40 98.2 F 84 20 146/68 H 91 L 12/03/18 06:02 77 18 95 12/03/18 03:56 98.0 F 68 19 109/54 L 94 L 12/03/18 00:00 98.7 F 79 20 141/63 H 95 12/02/18 20:59 93 L Weight Weight 125 lb 4 oz I&O: 12/02/18 12/03/18 12/04/18 06:59 06:59 06:59 Intake Total 1736 Output Total 650 450 Balance 1086 -450 Result Diagrams: 12/01/18 04:37 12/03/18 04:38 Phys Exam - Physical Examination mildrespiratory distress HEENT: moist MMs Neck: no JVD, supple fair air entry with prolonged expiration, rhonchi andtransmitted sound Cardiovascular: RRR Gastrointestinal: soft, non-tender, no distention Musculoskeletal: no edema, pulses present Neurological: non-focal, moves all 4 limbs conscious and alert. Dx/Plan (1) Acute respiratory failure with hypoxia Code(s): J96.01 - ACUTE RESPIRATORY FAILURE WITH HYPOXIA Status: Acute Comment: Still on oxygen. Seem to be geetting worse andrequiring more oxygen. (2) Right lower lobe pneumonia Code(s): J18.1 - LOBAR PNEUMONIA, UNSPECIFIED ORGANISM Status: Acute (3) Hyperkalemia Code(s): E87.5 - HYPERKALEMIA Status: Acute Comment: Resolved. (4) Positive blood culture Code(s): R78.81 - BACTEREMIA Status: Acute Comment: Grew staph epiderdimidisin 1/2 andstaph capitis in the other 1/2. Considered contaminant. (5) CKD (chronic kidney disease) stage 3, GFR 30-59 ml/min Code(s): N18.3 - CHRONIC KIDNEY DISEASE, STAGE 3 (MODERATE) Status: Acute Comment: Stable. 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 ? due to correction of hemoconcentration supereimposed on chronic iron deficiency anemia. Iron chemistry is suggestive of iron deficiency (13) Paroxysmal atrial fibrillation Code(s): I48.0 - PAROXYSMAL ATRIAL FIBRILLATION Status: Acute Comment: Questionable. Lasted for 12 seconds noticed on tele. Occured while patient was getting bed bath. She also has Pneumonia on treatment. Rate remained controlled. - Plan Will DC IVF due to worsemning chest congestion. -: Get CT chest without contrast and echo -: Get Respiratory paneland repeat blood cultures -: Start oral prednisone. Continue antibiotics and breathing treatments. -: Will d/w cardiology about care home anticoagulation. PT to continue. * .
[2018-12-03] MEDS: Enoxaparin Sodium 30 MG/0.3 ML SYRINGE SC SCH (09:23)
[2018-12-03] MEDS: guaiFENesin ER 600 MG TAB PO SCH ×2 (09:24→21:45)
[2018-12-03] MEDS: Aspirin 81 mg Enteric Coated Tablet PO SCH (09:24)
[2018-12-03] MEDS: Clopidogrel Bisulfate 75 MG TAB PO SCH (09:25)
[2018-12-03] MEDS ORDERED: predniSONE 20 MG TAB PO SCH ×2 (10:00→17:00)
--- NOTE | 2018-12-03 11:09 | CT ---
Exam: Chest CT scan without IV contrast: HISTORY: Worsening shortness of breath Findings: Bilateral pleural effusions, small on the left and moderate on the right. Extensive alveolar and inte rstitial parenchymal changes in the right upper lobe and right lower lobe worrisome for pneumonia. There is a 3.5 cm diameter right hilar mass. In addition there are abnormal lymph nodes including a r ight paratracheal node measuring 2.2 cm, and an AP window node measuring approximately 1.4 cm, and subcarinal lymph node measuring 2.3 cm in short axis evidence for adenopathy. 1.8 cm diameter left pr evascular node. Atherosclerosis of the aorta with extensive calcification. 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 Multip le bilateral pulmonary metastasis up to 1 cm in size. IMPRESSION: Extensive right upper lobe and right lower lobe alveolar and interstitial parenchymal changes worriso me for pneumonia. There is probably some component of atelectasis as well. Poorly circumscribed right hilar mass. Mediastinal adenopathy. Bilateral pulmonary metastasis.
[2018-12-03] MEDS: Ondansetron ODT 4 MG TAB PO PRN (12:50)
[2018-12-03] MEDS: Furosemide 40 MG/4 ML VIAL ONE ×2 (13:19→13:33)
[2018-12-03] MEDS ORDERED: Furosemide 40 MG/4 ML VIAL SLOW IVP SCH (13:30)
[2018-12-03] MEDS ORDERED: Morphine 2 MG/ML SYRINGE SLOW IVP SCH (13:30)
[2018-12-03 13:41] LABS: Actual Bicarbonate (HCO3a) 22.9 mEq/L (22-28); Base Excess (BEa) -3.6 mEq/L (-2.0 to +3.0); CO2 Tension 47.3 mmHg (35.0-45.0); Calcium, Ionized 1.21 mmol/L (1.12-1.30); Carboxyhemoglobin (COHb) 0.5 gm% (0.0-3.0); Hemoglobin (Hb) 10.8 g/dL (12.0-16.0); Potassium - ABG Lab 4.71 mmol/L (3.70-5.30)
[2018-12-03 13:42] LABS: O2 Tension (PaO2) 56.1 mmHg (> 60.0); Puncture Site RRA
[2018-12-03 14:12] LABS: Troponin I 0.013 ng/mL (< 0.028)
[2018-12-03 19:22] LABS: BF Color Yellow; Body Fluid Source Pleural Fluid; Clarity Hazy (Clear); RBC Background Count 0.004; Tube # EDTA; WBC/NonHematic-Auto 924 /cumm
[2018-12-03 19:23] LABS: BF RBC Count - Manual 1200 /cumm
[2018-12-03 19:28] LABS: BF Segmented Neutrophils 51 %; Cell Count Non Hematic 22 %; Lymphocytes 27 %
[2018-12-03 19:30] LABS: Pleural Fluid, Protein 2.7 g/dL
[2018-12-03] MEDS: Simvastatin 20 MG TAB PO SCH (21:44)
[2018-12-03] MEDS: Ezetimibe 10 MG TAB PO SCH (21:44)
[2018-12-03] MEDS: Melatonin 3 MG TAB PO PRN (21:45)
--- NOTE | 2018-12-03 23:41 | CON ---
DATE OF CONSULTATION: 12/03/2018 SERVICE: Pulmonary Medicine. REASON FOR CONSULT: Hypoxic respiratory failure. HISTORY OF PRESENT ILLNESS: The patient is an 83-year-old white female with a remote history of breast cancer. She underwent a mastectomy quite some time ago. She was in her usual state of health until a week prior to presentation when she had a stepwise steady decline. Over the last 1-2 days, she did not want her coffee and her family noted that things were severely abnormal. She was brought to the emergency department. She was not having any cough or sputum production. She denies having any fevers or chills. She was having increasing shortness of breath and dyspnea with limited activity. She also had increasing weakness. Over the last couple of days, she was given nebulized medications, antibiotics, and some steroids. She had a progressive increase in respiratory failure. She was then given some Lasix, and she has had decreasing oxygen requirements. She is also breathing much better. Because of her increasing respiratory difficulties, CT chest was pursued today demonstrating multiple metastatic lesions in the bilateral lung fink, infiltrate on the right, as well as a moderate size right-sided pleural effusion and a small left-sided pleural effusion. PAST MEDICAL HISTORY: 1. Dementia. 2. Breast cancer with history of mastectomy. 3. Coronary artery disease. 4. Hypertension. 5. History of CVA. 6. Chronic kidney disease, stage 3. 7. Hypothyroidism. 8. Peripheral vascular disease. PAST SURGICAL HISTORY: 1. Left carotid endarterectomy. 2. Hip surgery. 3. Hysterectomy. 4. Tonsillectomy. 5. Left breast reconstruction. FAMILY HISTORY: Noncontributory. SOCIAL HISTORY: Negative for alcohol, tobacco, or illicit drug use currently. She has a greater than 50-pack year history of smoking, but quit right about 10 or 11 years ago[address] Denies any street drugs. She has no exposure to chemicals, dust, asbestos, or tuberculosis. ALLERGIES: NO KNOWN DRUG ALLERGIES. MEDICATIONS: List of her inpatient medications was reviewed. No specific updates were made. REVIEW OF SYSTEMS: General, head, ears, eyes, nose, throat, cardiovascular, respiratory, GI, , musculoskeletal, neurologic, and skin is negative except as mentioned in HPI. PHYSICAL EXAMINATION: VITAL SIGNS: Afebrile, pulse 72, blood pressure 120/54, respirations 24, saturation 92% on 5 L nasal cannula. GENERAL: The patient is awake and alert, in no apparent distress. LUNGS: Decent air entry. Extensive crackles are present on the right. No crackles are present on the left. There is no prolonged expiratory phase or wheezing appreciated. No rhonchi are heard. HEART: Normal rate, regular. ABDOMEN: Soft, nontender, nondistended. Bowel sounds are positive. MUSCULOSKELETAL: No cyanosis or clubbing. There is no pitting in the bilateral lower extremities. NEUROLOGIC: Grossly nonfocal. LABORATORY DATA: WBC 9.8, hemoglobin 10.0, platelets 411,000. PH 7.30, pCO2 47 , PO2 56 corresponding to a saturation of 88% on 6 L nasal cannula at that time. Creatinine 1.68 and gently up trending. Basic metabolic profile is otherwise unremarkable. Troponin is negative x2. Ferritin 280. Liver function studies are unremarkable. IMAGING: CT of the chest demonstrates extensive bilateral pulmonary nodules which for the most part are in vascular distributions. She has interstitial fullness throughout much of the right lung. There is overt consolidating changes as well as cannonball lesions present. These are present bilaterally. In addition to this , she has bilateral pleural effusions. It is much worse on the right compared to the left. Widespread mediastinal lymphadenopathy is noted. There is some left atrial dilation. ASSESSMENT: 1. Acute hypoxic respiratory failure. 2. Bilateral pleural effusions, right greater than left. 3. Pulmonary infiltrate on the right. 4. Bilateral large cannonball lesions, suggestive of widely metastatic process. 5. Paroxysmal atrial fibrillation, brief. 6. Chronic kidney disease, stage 3/4. 7. Coronary artery disease/peripheral vascular disease. 8. Dementia. DISCUSSION AND PLAN: The patient is likely suffering from widely metastatic process. We have yet to delineate what this is. I am going to do a thoracentesis on the right. Because she is on Plavix, this is going to have to be a diagnostic procedure only. We can continue our empiric antibiotics directed at lung pathology. I will add a brief course of steroids. Pulmonary/critical Care will continue to follow along while the patient remains inhouse. 70 minutes have been devoted to this patient in various activities. I personally reviewed all imaging studies and laboratory data noted within this document. For fifty percent of this time, I was interacting with the patient at the bedside or coordinating care with the care team. For the remainder of the time I was immediately available to the patient in the hospital unit. Job ID: [id number] MTDD
[2018-12-04] MEDS: Temazepam 15 MG CAP PO PRN ×2 (02:01→21:27)
[2018-12-04 05:37] LABS: #Lymphocytes 0.5 thou/uL (1.20-3.40); #Monocytes 0.1 thou/uL (0.11-0.59); #Neutrophils 8.4 thou/uL (1.40-6.50); %Eosinophils 0.1 % (0.0-10.0); %Lymphocytes 5.9 % (21.0-51.0); %Monocytes 0.5 % (0.0-10.0); %Neutrophils 93.4 % (42.0-75.0); Hemoglobin 10.4 g/dL (12.0-16.0); Mean Corpuscular HGB CONC 31.9 g/dL (32.0-36.0); Mean Corpuscular Hemoglobin 29.8 pg (27.0-31.0); Mean Corpuscular Volume 93.6 fL (78.0-98.0); Mean Platelet Volume 7.5 fL (7.4-10.4); Platelet Count 454 thou/uL (130-400)
[2018-12-04 05:59] LABS: Albumin 2.9 g/dL (3.4-4.8); Anion Gap 12 mmol/L (10-20); BUN (Urea Nitrogen) 33 mg/dL (9.8-20.1); BUN/Creatinine Ratio 22.76; Calc. Creatinine Clearance 27 mL/min (70-130); Calcium 9.4 mg/dL (7.8-10.44); Carbon Dioxide 22 mmol/L (23-31); Chloride 103 mmol/L (98-107); Estimated GFR-MDRD 35; Glucose 143 mg/dL (83-110); Magnesium 1.8 mg/dL (1.6-2.6); Phosphorus 4.3 mg/dL (2.3-4.7); Potassium 5.1 mmol/L (3.5-5.1); Sodium 132 mmol/L (136-145)
[2018-12-04] MEDS: Levothyroxine Sodium 50 MCG TAB PO SCH (06:10)
--- NOTE | 2018-12-04 08:13 | OP ---
DATE OF PROCEDURE: 12/03/2018 SERVICE: Pulmonary Medicine. PROCEDURE PERFORMED: Right-sided thoracentesis. CONSENT: The risks and benefits of the procedure were explained to the patient. All questions were answered and alternative options explained. MEDICATIONS USED: Lidocaine 1% without epinephrine, total quantity 8 mL. PREPROCEDURE DIAGNOSES: 1. Acute hypoxic respiratory failure. 2. Pleural effusion. POSTPROCEDURE DIAGNOSES: 1. Acute hypoxic respiratory failure. 2. Pleural effusion. DESCRIPTION OF PROCEDURE: Time-out was performed by the procedure team and the patient. The patient was positively identified using name and date of . The procedure site was marked. Vital sign monitoring was accomplished by noninvasive hemodynamic monitoring, pulse oximetry, and telemetry. In the seated position, the right posterior hemithorax was examined using ultrasound probe. The diaphragm and pleural fluid were easily identified. The skin was prepped and draped in sterile fashion and anesthetized with 1% lidocaine without epinephrine. A finder needle was inserted in the pleural space with return of clear yellow pleural fluid. A total of 100 mL was aspirated and sent for analysis. The needle was withdrawn and a sterile dressing was applied. The patient had stable vitals throughout the entire procedure. ESTIMATED BLOOD LOSS: None. COMPLICATIONS: None. Job ID: [id number]
[2018-12-04] MEDS: Budesonide 0.5 MG/2 ML NEB INH SCH ×2 (08:50→18:47)
--- NOTE | 2018-12-04 09:23 | PDOC.CTH ---
Cardiology Progress Note - Subjective The pt seen and examined. No overnight events. No cardiac complaints. - Objective Vital Signs Temp Pulse Resp BP Pulse Ox 12/04/18 08:50 68 24 H 12/04/18 08:49 68 24 H 12/04/18 07:34 97.3 F L 68 18 150/74 H 92 L 12/04/18 04:00 97.4 F L 76 16 180/85 H 95 12/04/18 00:00 98.1 F 72 16 146/56 H 100 Weight 125 lb 4 oz 12/03/18 12/04/18 12/05/18 06:59 06:59 06:59 Intake Total 720 Output Total 450 750 Balance -450 -30 - Physical Examination General/Neuro: other: (alert to self) Lungs: other: (diminished at bases) Heart: RRR (SR at this moment) Abdomen: soft Extremities: other: (No edema) - Telemetry Telemetry Rhythm: SR - Labs Result Diagrams: 12/04/18 05:00 12/04/18 05:00 Troponin/CKMB Troponin I 0.013 ng/mL (< 0.028) 12/03/18 13:41 - Assessment/Plan 1. Prox Afib - intermittent Afib with well controlled HR; Possible start OAC ( according to her Medical record, her last fall was in 09/2017 during the hospitalization; She lives in home with her daughter; RN will ask the pt's daughter for hx of fall); On Metoprolol and ASA 81mg qd 2. Resp. Failure with RLL PNA and s/p Rt thoracentesis - Stable with 4LNC; managed by strapping machine tender 3. HTN - may resume her BP med 4. CAD with hx of 100% stenosis in RCA - on bblocker, statin, ASA 5. CKD - slightly improving 6. HLD - on Statin 7. PVD - asymptomatic 8. Hypothyroidism - 9. Anxiety/Depression - 10. Physical deconditioning - MAR reviewed Pt. seen and eval. by me. I agree with the A/P by the PEDIATRIC CNS. I spoke tothe daughter and she states that she has not fallen for some time. The atrial fib. is intermittent. This may have been exacerbated by the PNA. Chest : bilateral basilar rales and wheeze. RRR at this time. Review of Systems - Review of Systems Constitutional: reports: no symptoms reported EENTM: reports: no symptoms reported Respiratory: reports: no symptoms reported Cardiac (ROS): reports: no symptoms reported ABD/GI: reports: no symptoms reported : reports: no symptoms reported Musculoskeletal: reports: no symptoms reported
--- NOTE | 2018-12-04 09:27 | PDOC.PN ---
- Subjective Encounter Start Date: 12/04/18 Encounter Start Time: 09:24 Subjective: Seen and examined. No new problem -: Denied Fever or chest pain. - Objective Resuscitation Status - Order Detail: 11/29/18 08:45 Resuscitation Status Routine Resuscitation Status: DNAR: NO Resuscitation Discussed with: Patients daughter who has medical power of state attorney Vital Signs & Weight: Vital Signs (12 hours) Temp Pulse Resp BP Pulse Ox 12/04/18 08:50 68 24 H 12/04/18 08:49 68 24 H 12/04/18 07:34 97.3 F L 68 18 150/74 H 92 L 12/04/18 04:00 97.4 F L 76 16 180/85 H 95 12/04/18 00:00 98.1 F 72 16 146/56 H 100 Weight Weight 125 lb 4 oz I&O: 12/03/18 12/04/18 12/05/18 06:59 06:59 06:59 Intake Total 720 Output Total 450 750 Balance -450 -30 Result Diagrams: 12/04/18 05:00 12/04/18 05:00 Phys Exam - Physical Examination Constitutional: NAD afebrile . anicteric and not in distress HEENT: PERRLA, moist MMs Neck: supple fair air entry with some transmitted sound/crackles and few rhonchi Cardiovascular: RRR Gastrointestinal: soft, non-tender, no distention, positive bowel sounds Musculoskeletal: no edema, pulses present Neurological: non-focal, moves all 4 limbs Memory lapses noted Psychiatric: A&O x 3 Dx/Plan (1) Acute respiratory failure with hypoxia Code(s): J96.01 - ACUTE RESPIRATORY FAILURE WITH HYPOXIA Status: Acute Comment: Due to pneumonia, acute CHF and pleural effusion. Improved. (2) Hyperkalemia Code(s): E87.5 - HYPERKALEMIA Status: Acute Comment: Resolved. (3) Positive blood culture Code(s): R78.81 - BACTEREMIA Status: Acute Comment: Grew staph epiderdimidisin 1/2 andstaph capitis in the other 1/2. Considered contaminant. (4) CKD (chronic kidney disease) stage 3, GFR 30-59 ml/min Code(s): N18.3 - CHRONIC KIDNEY DISEASE, STAGE 3 (MODERATE) Status: Acute Comment: Stable. (5) Demand ischemia of myocardium Code(s): I24.8 - OTHER FORMS OF ACUTE ISCHEMIC HEART DISEASE Status: Acute (6) Physical deconditioning Code(s): R53.81 - OTHER MALAISE Status: Acute (7) Benign essential hypertension Code(s): I10 - ESSENTIAL (PRIMARY) HYPERTENSION Status: Chronic (8) Dyslipidemia Code(s): E78.5 - HYPERLIPIDEMIA, UNSPECIFIED Status: Chronic (9) Hypothyroidism Code(s): E03.9 - HYPOTHYROIDISM, UNSPECIFIED Status: Chronic (10) Senile dementia Code(s): F03.90 - UNSPECIFIED DEMENTIA WITHOUT BEHAVIORAL DISTURBANCE Status: Chronic (11) Acute anemia Code(s): D64.9 - ANEMIA, UNSPECIFIED Status: Acute Comment: Hb down from 12.6 on admission to 9.7. ? due to correction of hemoconcentration supereimposed on chronic iron deficiency anemia. Iron chemistry is suggestive of iron deficiency (12) Paroxysmal atrial fibrillation Code(s): I48.0 - PAROXYSMAL ATRIAL FIBRILLATION Status: Acute Comment: Questionable. Lasted for 12 seconds noticed on tele. Occured while patient was getting bed bath. She also has Pneumonia on treatment. Rate remained controlled. (13) Multifocal pneumonia Code(s): J18.9 - PNEUMONIA, UNSPECIFIED ORGANISM Status: Acute (14) Lung cancer Code(s): C34.90 - MALIGNANT NEOPLASM OF UNSP PART OF UNSP BRONCHUS OR LUNG Status: Acute (15) Mediastinal adenopathy Code(s): R59.0 - LOCALIZED ENLARGED LYMPH NODES Status: Acute (16) Pleural effusion Code(s): J90 - PLEURAL EFFUSION, NOT ELSEWHERE CLASSIFIED Status: Acute Comment: S/p right thoracentesis. Transudate. Awaiting cytology (17) Acute diastolic (congestive) heart failure Code(s): I50.31 - ACUTE DIASTOLIC (CONGESTIVE) HEART FAILURE Status: Acute (18) Pulmonary HTN Code(s): I27.20 - PULMONARY HYPERTENSION, UNSPECIFIED Status: Acute - Plan Continue diuretics, beta cecily and oxygen supplementation -: Also continue bronchodilators, steroid and antibiotics. -: awaiting pleural fluid cytology. -: Bronchoscoscopy with biopsy of the right hillar mass if cytology nondiagnos -: PT/Ot to continue. * .
[2018-12-04] MEDS: Enoxaparin Sodium 30 MG/0.3 ML SYRINGE SC SCH (09:44)
[2018-12-04] MEDS: Furosemide 40 MG/4 ML VIAL SLOW IVP SCH (09:44)
[2018-12-04] MEDS: Aspirin 81 mg Enteric Coated Tablet PO SCH (09:45)
[2018-12-04] MEDS: predniSONE 20 MG TAB PO SCH (09:45)
[2018-12-04] MEDS: guaiFENesin ER 600 MG TAB PO SCH ×2 (09:45→21:26)
[2018-12-04] MEDS: Acetaminophen 325 MG TAB PO PRN ×2 (10:39→21:27)
--- NOTE | 2018-12-04 15:45 | PRG ---
DATE OF SERVICE: SERVICE: Pulmonary Medicine. INTERVAL HISTORY: The patient is doing fine from respiratory standpoint. She is breathing comfortably. There has been no interval change to her condition. She does not look to be in any distress. There are no significant overnight events. PHYSICAL EXAMINATION: VITAL SIGNS: Afebrile, pulse 74, blood pressure 126/65, respirations 16, saturation 93% on room air. GENERAL: The patient is awake and alert, in no apparent distress. LUNGS: Decent air entry. There is decreased air entry at the right base. No prolonged expiratory phase. Crackles are identified bilaterally today, but they are worse on the right. HEART: Normal rate, regular. ABDOMEN: Soft, nontender, nondistended. Bowel sounds are positive. MUSCULOSKELETAL: No cyanosis or clubbing. No pitting in the bilateral lower extremities. NEUROLOGIC: Grossly nonfocal. LABORATORY DATA: WBC 9.0, hemoglobin 10.4, platelets 454,000. Creatinine 1.45 and downtrending, BUN 33. Basic metabolic profile is otherwise unremarkable. Magnesium and phosphorous fall within the normal limits. Albumin 2.9. Body fluid is significant for an LDH of 94, total glucose is normal, fluid protein is 2.7, pH is normal. Cultures are negative to date. Respiratory virus panel is unremarkable. Blood cultures x2 are negative. IMAGING STUDIES: Echocardiogram shows normal ejection fraction, 1/3 diastolic dysfunction. Right ventricular systolic pressures are elevated. ASSESSMENT: 1. Acute hypoxic respiratory failure. 2. Pleural effusion, status post thoracentesis, transudate (pathology pending). 3. Pulmonary infiltrate on the right. 4. Bilateral large cannonball lesions suggestive of metastatic process. 5. Paroxysmal atrial fibrillation, brief. 6. Acute on chronic diastolic heart failure. 7. Chronic kidney disease, stage 3. 8. Coronary artery disease/peripheral vascular disease. 9. Dementia, fairly advanced. DISCUSSION AND PLAN: We will continue to diurese the patient down to euvolemia. We will watch for the cytology. We will hold Plavix. Over the weekend, if we do not have any answers to her underlying process and she remains in the hospital, we can consider setting her up for a bronchoscopy with biopsy Friday or Friday. If the family is interested in a distinctive answer and she stabilizes to the point of being able to be discharged over the weekend, we will set it up in the outpatient setting. Job ID: [id number]
[2018-12-04] MEDS: Ezetimibe 10 MG TAB PO SCH (21:26)
[2018-12-04] MEDS: Simvastatin 20 MG TAB PO SCH (21:26)
[2018-12-04] MEDS: Diltiazem HCl SR 60 mg Capsule PO SCH (22:26)
[2018-12-05] MEDS: Levothyroxine Sodium 50 MCG TAB PO SCH (06:15)
[2018-12-05] MEDS: Ondansetron ODT 4 MG TAB PO PRN ×2 (06:44→23:00)
[2018-12-05] MEDS: Enoxaparin Sodium 30 MG/0.3 ML SYRINGE SC SCH (09:39)
[2018-12-05] MEDS: Furosemide 40 MG/4 ML VIAL SLOW IVP SCH (09:39)
[2018-12-05] MEDS: predniSONE 20 MG TAB PO SCH (09:40)
[2018-12-05] MEDS: Aspirin 81 mg Enteric Coated Tablet PO SCH (09:40)
[2018-12-05] MEDS: Diltiazem HCl SR 60 mg Capsule PO SCH ×2 (09:40→21:46)
[2018-12-05] MEDS: guaiFENesin ER 600 MG TAB PO SCH ×2 (09:40→21:46)
[2018-12-05] MEDS: Budesonide 0.5 MG/2 ML NEB INH SCH ×2 (10:10→18:44)
--- NOTE | 2018-12-05 10:32 | PDOC.PN ---
- Subjective Encounter Start Date: 12/05/18 Encounter Start Time: 07:30 -: old records requested/rev Patient seen and examined. No new complaints. No overnight events she was given sedative last night, she slept well - Objective Resuscitation Status - Order Detail: 11/29/18 08:45 Resuscitation Status Routine Resuscitation Status: DNAR: NO Resuscitation Discussed with: Patients daughter who has medical power of ip technology transactions attorney MAR Reviewed: Yes Vital Signs & Weight: Vital Signs (12 hours) Temp Pulse Resp BP Pulse Ox 12/05/18 10:18 93 L 12/05/18 10:10 60 28 H 93 L 12/05/18 09:40 92 L 12/05/18 07:25 97.7 F 68 18 134/82 92 L 12/05/18 04:00 98.0 F 73 20 149/66 H 92 L 12/05/18 00:00 74 132/63 Weight Weight 132 lb 6.4 oz I&O: 12/04/18 12/05/18 12/06/18 06:59 06:59 06:59 Intake Total 720 780 Output Total 750 1100 Balance -30 -320 Result Diagrams: 12/04/18 05:00 12/04/18 05:00 Radiology Reviewed by me: Yes EKG Reviewed by me: Yes Phys Exam - Physical Examination Constitutional: NAD HEENT: PERRLA, moist MMs, sclera anicteric Neck: no JVD, supple Respiratory: no wheezing, no rales, no rhonchi Cardiovascular: no significant murmur, no rub Gastrointestinal: soft, non-tender, no distention, positive bowel sounds Musculoskeletal: no edema, pulses present Neurological: moves all 4 limbs Lymphatic: no nodes Psychiatric: normal affect Skin: no rash, normal turgor Dx/Plan (1) Acute on chronic diastolic ACC/AHA stage C congestive heart failure Code(s): I50.33 - ACUTE ON CHRONIC DIASTOLIC (CONGESTIVE) HEART FAILURE Status : Acute (2) Acute respiratory failure with hypoxia Code(s): J96.01 - ACUTE RESPIRATORY FAILURE WITH HYPOXIA Status: Acute Comment: (3) Lung cancer Code(s): C34.90 - MALIGNANT NEOPLASM OF UNSP PART OF UNSP BRONCHUS OR LUNG Status: Suspected (4) Mediastinal adenopathy Code(s): R59.0 - LOCALIZED ENLARGED LYMPH NODES Status: Acute (5) Multifocal pneumonia Code(s): J18.9 - PNEUMONIA, UNSPECIFIED ORGANISM Status: Acute (6) Physical deconditioning Code(s): R53.81 - OTHER MALAISE Status: Acute (7) Pleural effusion Code(s): J90 - PLEURAL EFFUSION, NOT ELSEWHERE CLASSIFIED Status: Acute Comment: S/p right thoracentesis. (8) Pulmonary HTN Code(s): I27.20 - PULMONARY HYPERTENSION, UNSPECIFIED Status: Acute (9) Anxiety and depression Code(s): F41.9 - ANXIETY DISORDER, UNSPECIFIED; F32.9 - MAJOR DEPRESSIVE DISORDER, SINGLE EPISODE, UNSPECIFIED Status: Chronic (10) CKD (chronic kidney disease) stage 3, GFR 30-59 ml/min Code(s): N18.3 - CHRONIC KIDNEY DISEASE, STAGE 3 (MODERATE) Status: Chronic Comment: Stable. (11) Dyslipidemia Code(s): E78.5 - HYPERLIPIDEMIA, UNSPECIFIED Status: Chronic (12) H/O: CVA (cerebrovascular accident) Code(s): Z86.73 - PRSNL HX OF TIA (TIA), AND CEREB INFRC W/O RESID DEFICITS Status: Chronic (13) Hypothyroidism Code(s): E03.9 - HYPOTHYROIDISM, UNSPECIFIED Status: Chronic (14) Paroxysmal atrial fibrillation Code(s): I48.0 - PAROXYSMAL ATRIAL FIBRILLATION Status: Chronic Comment: (15) Senile dementia Code(s): F03.90 - UNSPECIFIED DEMENTIA WITHOUT BEHAVIORAL DISTURBANCE Status: Chronic (16) Hyperkalemia Code(s): E87.5 - HYPERKALEMIA Status: Resolved Comment: - Plan cont current plan of care, plan discussed w/ family, continue antibiotics * follow up on pleural fluid cytology * pt and family will decide if they wanted to pursue nbronchoscopy * medication reviewed as below * symptomatic treatment. * meanwhile continue current treatment * may need SNU vs home, family will decide Review of Systems - Review of Systems Constitutional: weakness Respiratory: Shortness of Breath, SOB with Excertion. negative: Cough, Dry, Hemoptysis, Pleuritic Pain, Sputum, Wheezing Cardiovascular: negative: chest pain, palpitations, orthopnea, paroxysmal nocturnal dyspnea, edema, light headedness, other Gastrointestinal: negative: Nausea, Vomiting, Abdominal Pain, Diarrhea, Constipation, Melena, Hematochezia, Other Genitourinary: negative: Dysuria, Frequency, Incontinence, Hematuria, Retention , Other Musculoskeletal: negative: Neck Pain, Shoulder Pain, Arm Pain, Back Pain, Hand Pain, Leg Pain, Foot Pain, Other Skin: negative: Rash, Lesions, Marquise, Bruising, Other - Medications/Allergies Allergies/Adverse Reactions: Allergies Allergy/AdvReac Type Severity Reaction Status Date / Time No Known Allergies Allergy Verified 06/14/15 19:57 Medications: Current Medications Acetaminophen (Tylenol) 650 mg PO Q4H PRN PRN Reason: Headache/Fever/Mild Pain (1-3) Last Admin: 12/04/18 21:27 Dose: 650 mg Albuterol/Ipratropium (Duoneb) 3 ml NEB [id number] [facility] Last Admin: 12/05/18 10:10 Dose: 3 ml Albuterol/Ipratropium (Duoneb) 3 ml NEB Q2H PRN PRN Reason: SOB &/or Wheezing Aspirin (Ecotrin) 81 mg PO DAILY [facility] Last Admin: 12/05/18 09:40 Dose: 81 mg Budesonide (Pulmicort Neb Solution) 0.5 mg INH BID-RT [facility] Last Admin: 12/05/18 10:10 Dose: 0.5 mg Diltiazem HCl (Cardizem Sr) 60 mg PO BID [facility] Last Admin: 12/05/18 09:40 Dose: 60 mg Ezetimibe (Zetia) 10 mg PO HS [facility] Last Admin: 12/04/18 21:26 Dose: 10 mg Enoxaparin Sodium (Lovenox) 30 mg SC 0900 [facility] Last Admin: 12/05/18 09:39 Dose: 30 mg Guaifenesin (Mucinex) 1,200 mg PO Q12HR [facility] Last Admin: 12/05/18 09:40 Dose: 1,200 mg Levofloxacin (Levaquin) 750 mg PO Q48H [facility] Last Admin: 12/05/18 06:14 Dose: 750 mg Levothyroxine Sodium (Synthroid) 50 mcg PO 0600 [facility] Last Admin: 12/05/18 06:15 Dose: 50 mcg Melatonin (Melatonin) 3 mg PO HS PRN PRN Reason: Insomnia Last Admin: 12/03/18 21:45 Dose: 3 mg Memantine (Namenda) 10 mg PO DAILY [facility] Last Admin: 12/05/18 09:40 Dose: 10 mg Metoprolol Succinate (Toprol Xl) 50 mg PO DAILY [facility] Last Admin: 12/05/18 09:40 Dose: 50 mg Ondansetron HCl (Zofran Odt) 4 mg PO Q6H PRN PRN Reason: Nausea/Vomiting Last Admin: 12/05/18 06:44 Dose: 4 mg Ondansetron HCl (Zofran) 4 mg IVP Q6H PRN PRN Reason: Nausea/Vomiting Last Admin: 12/03/18 04:52 Dose: 4 mg Prednisone (Prednisone) 40 mg PO DAILY [facility] Last Admin: 12/05/18 09:40 Dose: 40 mg Senna/Docusate Sodium (Senokot S) 2 tab PO BIDPRN PRN PRN Reason: Constipation Simvastatin (Zocor) 40 mg PO HS [facility] Last Admin: 12/04/18 21:26 Dose: 40 mg Sodium Chloride (Flush - Normal Saline) 10 ml IVF Q12HR [facility] Last Admin: 12/05/18 09:41 Dose: 10 ml Sodium Chloride (Flush - Normal Saline) 10 ml IVF PRN PRN PRN Reason: Saline Flush Temazepam (Restoril) 15 mg PO HSPRN PRN PRN Reason: Insomnia Last Admin: 12/04/18 21:27 Dose: 15 mg
[2018-12-05] MEDS: Ondansetron PF 4 MG/2 ML Vial IVP PRN (12:53)
--- NOTE | 2018-12-05 13:05 | PRG ---
DATE OF SERVICE: 12/05/2018 SUBJECTIVE: Olinda Avila this morning denying any difficulty breathing. She is status post thoracentesis, transudate. OBJECTIVE: VITAL SIGNS: Sats are 99% on 3 L, respirations 20, temperature 97, blood pressure 158/72. CHEST: Crackles without any wheezing. CARDIAC: Normal S1 and S2. No gallops. ABDOMEN: No masses. LABORATORY DATA: Her cytology is pending. IMPRESSION: Congestive heart failure, multiple lung masses, respiratory failure, pneumonia, and chronic obstructive pulmonary disease. PLAN: Continue steroids and neb treatments. Await path report. Job ID: [id number]
--- NOTE | 2018-12-05 13:48 | PDOC.CTH ---
Cardiology Progress Note - Subjective The pt seen and examined. No overnight events. No cardiac complaints. - Objective Vital Signs Temp Pulse Resp BP BP Pulse Ox 12/05/18 11:19 97.6 F 63 20 158/72 H 99 12/05/18 10:18 93 L 12/05/18 10:10 60 28 H 93 L 12/05/18 09:40 92 L 12/05/18 07:25 97.7 F 68 18 134/82 92 L 12/05/18 04:00 98.0 F 73 20 149/66 H 92 L Weight 132 lb 6.4 oz 12/04/18 12/05/18 12/06/18 06:59 06:59 06:59 Intake Total 720 780 Output Total 750 1100 Balance -30 -320 - Physical Examination General/Neuro: other: (alerted to self) Neck: no JVD present Lungs: other: (diminished at bases) Heart: RRR Abdomen: soft Extremities: other: (No edema) - Telemetry Telemetry Rhythm: SR - Labs Result Diagrams: 12/04/18 05:00 12/04/18 05:00 Troponin/CKMB Troponin I 0.013 ng/mL (< 0.028) 12/03/18 13:41 - Assessment/Plan 1. Prox Afib - intermittent Afib with well controlled HR; On Metoprolol and ASA 81mg qd; Possible start OAC, but hold until Friday for possible bronchoscopy on Friday by Dr Delgado; 2. Resp. Failure with RLL PNA and s/p Rt thoracentesis - Stable with 4LNC; possible Bronchoscopy on Friday; managed by help desk specialist 3. HTN - may resume her BP med 4. CAD with hx of 100% stenosis in RCA - on bblocker, statin, ASA 5. CKD - slightly improving 6. HLD - on Statin 7. PVD - asymptomatic 8. Hypothyroidism - 9. Anxiety/Depression - 10. Physical deconditioning - MAR reviewed Pt. seen and eval. by me.I agree with the A/P by the DIRECTOR SPECIALTY. We have discussed the plan She complains of nausea but no vomiting. Chest : decreased BS bases.RRR. gjm Review of Systems - Review of Systems Constitutional: reports: no symptoms reported EENTM: reports: no symptoms reported Respiratory: reports: no symptoms reported Cardiac (ROS): reports: no symptoms reported ABD/GI: reports: no symptoms reported : reports: no symptoms reported
[2018-12-05] MEDS: Acetaminophen 325 MG TAB PO PRN (19:01)
[2018-12-05] MEDS: Temazepam 15 MG CAP PO PRN (21:46)
[2018-12-05] MEDS: Senokot S 8.6-50 MG TAB PO PRN (21:46)
[2018-12-05] MEDS: Simvastatin 20 MG TAB PO SCH (21:46)
[2018-12-05] MEDS: Ezetimibe 10 MG TAB PO SCH (21:46)
[2018-12-06] MEDS: Melatonin 3 MG TAB PO PRN (00:22)
[2018-12-06] MEDS: Ondansetron ODT 4 MG TAB PO PRN (06:05)
[2018-12-06] MEDS: Levothyroxine Sodium 50 MCG TAB PO SCH (06:06)
[2018-12-06] MEDS: Acetaminophen 325 MG TAB PO PRN (06:08)
[2018-12-06] MEDS: Budesonide 0.5 MG/2 ML NEB INH SCH ×2 (07:30→18:58)
--- NOTE | 2018-12-06 09:26 | PDOC.PN ---
- Subjective Encounter Start Date: 12/06/18 Encounter Start Time: 07:50 Patient seen and examined. No new complaints. No overnight events - Objective Resuscitation Status - Order Detail: 11/29/18 08:45 Resuscitation Status Routine Resuscitation Status: DNAR: NO Resuscitation Discussed with: Patients daughter who has medical power of research attorney MAR Reviewed: Yes Vital Signs & Weight: Vital Signs (12 hours) Temp Pulse Resp BP BP Pulse Ox 12/06/18 07:30 68 18 92 L 12/06/18 07:08 97.7 F 74 18 123/58 L 92 L 12/06/18 03:12 97.9 F 73 18 178/84 H 95 12/05/18 23:37 97.8 F 97 18 171/74 H 94 L Weight Weight 133 lb 14.4 oz I&O: 12/05/18 12/06/18 12/07/18 06:59 06:59 06:59 Intake Total 780 1280 Output Total 1100 800 Balance -320 480 Result Diagrams: 12/04/18 05:00 12/04/18 05:00 EKG Reviewed by me: Yes Phys Exam - Physical Examination Constitutional: NAD HEENT: PERRLA, moist MMs, sclera anicteric Neck: no JVD, supple Respiratory: no wheezing, no rhonchi reduced air entry at base Cardiovascular: RRR, no significant murmur, no rub Gastrointestinal: soft, non-tender, no distention, positive bowel sounds Musculoskeletal: no edema, pulses present Neurological: non-focal, normal sensation Lymphatic: no nodes Psychiatric: normal affect Skin: no rash, normal turgor Dx/Plan (1) Acute on chronic diastolic ACC/AHA stage C congestive heart failure Code(s): I50.33 - ACUTE ON CHRONIC DIASTOLIC (CONGESTIVE) HEART FAILURE Status : Acute (2) Acute respiratory failure with hypoxia Code(s): J96.01 - ACUTE RESPIRATORY FAILURE WITH HYPOXIA Status: Acute Comment: (3) Lung cancer Code(s): C34.90 - MALIGNANT NEOPLASM OF UNSP PART OF UNSP BRONCHUS OR LUNG Status: Suspected (4) Mediastinal adenopathy Code(s): R59.0 - LOCALIZED ENLARGED LYMPH NODES Status: Acute (5) Multifocal pneumonia Code(s): J18.9 - PNEUMONIA, UNSPECIFIED ORGANISM Status: Acute (6) Physical deconditioning Code(s): R53.81 - OTHER MALAISE Status: Acute (7) Pleural effusion Code(s): J90 - PLEURAL EFFUSION, NOT ELSEWHERE CLASSIFIED Status: Acute Comment: S/p right thoracentesis. (8) Pulmonary HTN Code(s): I27.20 - PULMONARY HYPERTENSION, UNSPECIFIED Status: Acute (9) Anxiety and depression Code(s): F41.9 - ANXIETY DISORDER, UNSPECIFIED; F32.9 - MAJOR DEPRESSIVE DISORDER, SINGLE EPISODE, UNSPECIFIED Status: Chronic (10) CKD (chronic kidney disease) stage 3, GFR 30-59 ml/min Code(s): N18.3 - CHRONIC KIDNEY DISEASE, STAGE 3 (MODERATE) Status: Chronic Comment: Stable. 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 Review of Systems - Review of Systems ENT: negative: Ear Pain, Ear Discharge, Nose Pain, Nose Discharge, Nose Congestion, Mouth Pain, Mouth Swelling, Throat Pain, Throat Swelling, Other Respiratory: negative: Cough, Dry, Shortness of Breath, Hemoptysis, SOB with Excertion, Pleuritic Pain, Sputum, Wheezing Cardiovascular: negative: chest pain, palpitations, orthopnea, paroxysmal nocturnal dyspnea, edema, light headedness, other Gastrointestinal: negative: Nausea, Vomiting, Abdominal Pain, Diarrhea, Constipation, Melena, Hematochezia, Other Genitourinary: negative: Dysuria, Frequency, Incontinence, Hematuria, Retention , Other Musculoskeletal: negative: Neck Pain, Shoulder Pain, Arm Pain, Back Pain, Hand Pain, Leg Pain, Foot Pain, Other - Medications/Allergies Allergies/Adverse Reactions: Allergies Allergy/AdvReac Type Severity Reaction Status Date / Time No Known Allergies Allergy Verified 06/14/15 19:57 Medications: Current Medications Acetaminophen (Tylenol) 650 mg PO Q4H PRN PRN Reason: Headache/Fever/Mild Pain (1-3) Last Admin: 12/06/18 06:08 Dose: 650 mg Albuterol/Ipratropium (Duoneb) 3 ml NEB [id number] [facility] Last Admin: 12/06/18 07:30 Dose: 3 ml Albuterol/Ipratropium (Duoneb) 3 ml NEB Q2H PRN PRN Reason: SOB &/or Wheezing Aspirin (Ecotrin) 81 mg PO DAILY [facility] Last Admin: 12/05/18 09:40 Dose: 81 mg Budesonide (Pulmicort Neb Solution) 0.5 mg INH BID-RT [facility] Last Admin: 12/06/18 07:30 Dose: 0.5 mg Diltiazem HCl (Cardizem Sr) 60 mg PO BID [facility] Last Admin: 12/05/18 21:46 Dose: 60 mg Ezetimibe (Zetia) 10 mg PO HS [facility] Last Admin: 12/05/18 21:46 Dose: 10 mg Enoxaparin Sodium (Lovenox) 30 mg SC 0900 [facility] Last Admin: 12/05/18 09:39 Dose: 30 mg Guaifenesin (Mucinex) 1,200 mg PO Q12HR [facility] Last Admin: 12/05/18 21:46 Dose: 1,200 mg Levofloxacin (Levaquin) 750 mg PO Q48H [facility] Last Admin: 12/05/18 06:14 Dose: 750 mg Levothyroxine Sodium (Synthroid) 50 mcg PO 0600 [facility] Last Admin: 12/06/18 06:06 Dose: 50 mcg Melatonin (Melatonin) 3 mg PO HS PRN PRN Reason: Insomnia Last Admin: 12/06/18 00:22 Dose: 3 mg Memantine (Namenda) 10 mg PO DAILY [facility] Last Admin: 12/05/18 09:40 Dose: 10 mg Metoprolol Succinate (Toprol Xl) 50 mg PO DAILY [facility] Last Admin: 12/05/18 09:40 Dose: 50 mg Ondansetron HCl (Zofran Odt) 4 mg PO Q6H PRN PRN Reason: Nausea/Vomiting Last Admin: 12/06/18 06:05 Dose: 4 mg Ondansetron HCl (Zofran) 4 mg IVP Q6H PRN PRN Reason: Nausea/Vomiting Last Admin: 12/05/18 12:53 Dose: 4 mg Prednisone (Prednisone) 40 mg PO DAILY [facility] Last Admin: 12/05/18 09:40 Dose: 40 mg Senna/Docusate Sodium (Senokot S) 2 tab PO BIDPRN PRN PRN Reason: Constipation Last Admin: 12/05/18 21:46 Dose: 2 tab Simvastatin (Zocor) 40 mg PO HS [facility] Last Admin: 12/05/18 21:46 Dose: 40 mg Sodium Chloride (Flush - Normal Saline) 10 ml IVF Q12HR [facility] Last Admin: 12/05/18 21:46 Dose: 10 ml Sodium Chloride (Flush - Normal Saline) 10 ml IVF PRN PRN PRN Reason: Saline Flush Temazepam (Restoril) 15 mg PO HSPRN PRN PRN Reason: Insomnia Last Admin: 12/05/18 21:46 Dose: 15 mg
[2018-12-06] MEDS: Aspirin 81 mg Enteric Coated Tablet PO SCH (09:48)
[2018-12-06] MEDS: predniSONE 20 MG TAB PO SCH (09:48)
[2018-12-06] MEDS: guaiFENesin ER 600 MG TAB PO SCH ×2 (09:48→20:27)
[2018-12-06] MEDS: Diltiazem HCl SR 60 mg Capsule PO SCH (09:48)
[2018-12-06] MEDS: Enoxaparin Sodium 30 MG/0.3 ML SYRINGE SC SCH (09:49)
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
--- NOTE | 2018-12-06 16:16 | PDOC.CTH ---
Cardiology Progress Note - Subjective The pt seen and examined. No overnight events. No cardiac complaints. - Objective Vital Signs Temp Pulse Resp BP BP Pulse Ox 12/06/18 16:11 97.9 F 60 16 135/63 93 L 12/06/18 13:42 71 18 92 L 12/06/18 11:18 63 14 166/75 H 94 L 12/06/18 09:48 92 L 12/06/18 07:30 68 18 92 L 12/06/18 07:08 97.7 F 74 18 123/58 L 92 L Weight 133 lb 14.4 oz 12/05/18 12/06/18 12/07/18 06:59 06:59 06:59 Intake Total 780 1280 Output Total 1100 800 Balance -320 480 - Physical Examination General/Neuro: alert & oriented x3 Neck: no JVD present Lungs: CTA (diminished at bases) Heart: RRR Abdomen: soft Extremities: other: - Telemetry Telemetry Rhythm: SR - Labs Result Diagrams: 12/04/18 05:00 12/04/18 05:00 Troponin/CKMB Troponin I 0.013 ng/mL (< 0.028) 12/03/18 13:41 - Assessment/Plan 1. Prox Afib - intermittent Afib with well controlled HR; On Metoprolol, ASA 81mg qd, and Diltiazem 60mg BID which will increase to 90mg BID for HTN; Possible start OAC, but hold until Friday for possible bronchoscopy on Friday by Dr Delgado; 2. Resp. Failure with RLL PNA and s/p Rt thoracentesis - Stable with 4LNC; possible Bronchoscopy on Friday; managed by facilities maintenance manager 3. HTN - increase Diltiazem from 60mg to 90mg BID 4. CAD with hx of 100% stenosis in RCA - on bblocker, statin, ASA 5. CKD - slightly improving 6. HLD - on Statin 7. PVD - asymptomatic 8. Hypothyroidism - 9. Anxiety/Depression - 10. Physical deconditioning - MAR reviewed * Dr Agustin's pt Pt. seen and eval. by me. I agree with the A/P by the ARMOR OFFICER. She is feeling better. Possible bronchoscopy tomorrow but the family is hesitant to proceed. gjm Review of Systems - Review of Systems Constitutional: reports: no symptoms reported EENTM: reports: no symptoms reported Respiratory: reports: no symptoms reported Cardiac (ROS): reports: no symptoms reported ABD/GI: reports: no symptoms reported : reports: no symptoms reported
[2018-12-06] MEDS: Senokot S 8.6-50 MG TAB PO PRN (17:43)
[2018-12-06] MEDS: Ezetimibe 10 MG TAB PO SCH (20:27)
[2018-12-06] MEDS: Simvastatin 20 MG TAB PO SCH (20:27)
[2018-12-06] MEDS: Diltiazem HCl SR 90 mg Capsule PO SCH (20:27)
[2018-12-06] MEDS: Temazepam 15 MG CAP PO PRN (20:28)
[2018-12-07] MEDS: Levothyroxine Sodium 50 MCG TAB PO SCH (06:14)
[2018-12-07] MEDS: Budesonide 0.5 MG/2 ML NEB INH SCH ×2 (07:07→19:27)
[2018-12-07] MEDS: Enoxaparin Sodium 30 MG/0.3 ML SYRINGE SC SCH (08:34)
[2018-12-07] MEDS: Aspirin 81 mg Enteric Coated Tablet PO SCH (08:34)
[2018-12-07] MEDS: guaiFENesin ER 600 MG TAB PO SCH ×2 (08:34→20:06)
[2018-12-07] MEDS: predniSONE 20 MG TAB PO SCH (08:34)
[2018-12-07] MEDS: Diltiazem HCl SR 90 mg Capsule PO SCH ×2 (09:57→20:06)
--- NOTE | 2018-12-07 11:03 | PRG ---
DATE OF SERVICE: 12/07/2018 SERVICE: Pulmonary Medicine. INTERVAL HISTORY: The patient is doing fine from respiratory standpoint. Breathing comfortably. No complaints of chest pain, fevers, chills, nausea, vomiting, or shortness of breath this morning. She remains on 2 L nasal cannula. The patient's family is deciding on whether or not to pursue any answer. PHYSICAL EXAMINATION: VITAL SIGNS: Afebrile. Pulse 63, blood pressure 144/83, respirations 16, saturation 98% on 2 L nasal cannula. GENERAL: The patient is awake and alert, in no apparent distress. LUNGS: Decent air entry. No prolonged expiratory phase or wheezing is present. HEART: Normal rate and regular. ABDOMEN: Soft, nontender, nondistended. Bowel sounds are positive. MUSCULOSKELETAL: No cyanosis or clubbing. No pitting in the bilateral lower extremities. NEUROLOGIC: Grossly nonfocal. LABORATORY DATA: All culture results are negative to date. Respiratory virus panel is negative. Blood cultures x2 are unremarkable. Cytology is positive for adenocarcinoma. ASSESSMENT: 1. Acute hypoxic respiratory failure, improving. 2. Malignant pleural effusion, status post thoracentesis demonstrating a transudate, but surprisingly, pathology was positive for adenocarcinoma. 3. Pulmonary infiltrate on the right, suspect lymphangitic spread of adenocarcinoma. 4. Paroxysmal atrial fibrillation, brief. 5. Acute on chronic diastolic heart failure. 6. Chronic kidney disease, stage 3. 7. Dementia, fairly advanced. DISCUSSION AND PLAN: We will continue to gently diurese the patient until she returns to euvolemia. 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 As such, there is no role for bronchoscopy. The patient will not likely be a candidate with systemic chemotherapy, but special stains are pending to see if there would be any benefit to immunotherapy. Hospice would be an appropriate disposition. At this point, the patient has no further requirements for pulmonary or critical care opinion, and I will sign off. Please call with additional questions or concerns. Job ID: [id number] [facility]
--- NOTE | 2018-12-07 11:19 | PDOC.PN ---
- Subjective Encounter Start Date: 12/07/18 Encounter Start Time: 07:40 Patient seen and examined. No new complaints. No overnight events - Objective Resuscitation Status - Order Detail: 11/29/18 08:45 Resuscitation Status Routine Resuscitation Status: DNAR: NO Resuscitation Discussed with: Patients daughter who has medical power of commercial attorney MAR Reviewed: Yes Vital Signs & Weight: Vital Signs (12 hours) Temp Pulse Resp BP Pulse Ox 12/07/18 07:08 97.8 F 63 16 144/83 H 98 12/07/18 07:02 91 L 12/07/18 07:00 60 16 91 L 12/07/18 04:00 97.2 F L 67 20 149/71 H 92 L Weight Weight 133 lb 14.4 oz I&O: 12/06/18 12/07/18 12/08/18 06:59 06:59 06:59 Intake Total 1280 720 Output Total 800 1400 Balance 480 -680 Result Diagrams: 12/04/18 05:00 12/04/18 05:00 EKG Reviewed by me: Yes Phys Exam - Physical Examination Constitutional: NAD HEENT: PERRLA, moist MMs, sclera anicteric Neck: no JVD, supple Respiratory: no wheezing, no rales, no rhonchi Cardiovascular: RRR, no significant murmur, no rub Gastrointestinal: soft, non-tender, no distention, positive bowel sounds Musculoskeletal: no edema, pulses present Neurological: non-focal, normal sensation Lymphatic: no nodes Psychiatric: normal affect Skin: no rash, normal turgor Dx/Plan (1) Acute on chronic diastolic ACC/AHA stage C congestive heart failure Code(s): I50.33 - ACUTE ON CHRONIC DIASTOLIC (CONGESTIVE) HEART FAILURE Status : Acute (2) Acute respiratory failure with hypoxia Code(s): J96.01 - ACUTE RESPIRATORY FAILURE WITH HYPOXIA Status: Acute Comment: (3) Lung cancer Code(s): C34.90 - MALIGNANT NEOPLASM OF UNSP PART OF UNSP BRONCHUS OR LUNG Status: Suspected (4) Mediastinal adenopathy Code(s): R59.0 - LOCALIZED ENLARGED LYMPH NODES Status: Acute (5) Multifocal pneumonia Code(s): J18.9 - PNEUMONIA, UNSPECIFIED ORGANISM Status: Acute (6) Physical deconditioning Code(s): R53.81 - OTHER MALAISE Status: Acute (7) Pleural effusion Code(s): J90 - PLEURAL EFFUSION, NOT ELSEWHERE CLASSIFIED Status: Acute Comment: S/p right thoracentesis. (8) Pulmonary HTN Code(s): I27.20 - PULMONARY HYPERTENSION, UNSPECIFIED Status: Acute (9) Anxiety and depression Code(s): F41.9 - ANXIETY DISORDER, UNSPECIFIED; F32.9 - MAJOR DEPRESSIVE DISORDER, SINGLE EPISODE, UNSPECIFIED Status: Chronic (10) CKD (chronic kidney disease) stage 3, GFR 30-59 ml/min Code(s): N18.3 - CHRONIC KIDNEY DISEASE, STAGE 3 (MODERATE) Status: Chronic Comment: Stable. (11) Dyslipidemia Code(s): E78.5 - HYPERLIPIDEMIA, UNSPECIFIED Status: Chronic (12) H/O: CVA (cerebrovascular accident) Code(s): Z86.73 - PRSNL HX OF TIA (TIA), AND CEREB INFRC W/O RESID DEFICITS Status: Chronic (13) Hypothyroidism Code(s): E03.9 - HYPOTHYROIDISM, UNSPECIFIED Status: Chronic (14) Paroxysmal atrial fibrillation Code(s): I48.0 - PAROXYSMAL ATRIAL FIBRILLATION Status: Chronic Comment: (15) Senile dementia Code(s): F03.90 - UNSPECIFIED DEMENTIA WITHOUT BEHAVIORAL DISTURBANCE Status: Chronic (16) Hyperkalemia Code(s): E87.5 - HYPERKALEMIA Status: Resolved Comment: - Plan cont current plan of care, plan discussed w/ family, respiratory therapy * pleural fluid report today c/w adenocarcinoma, * family will make decision regarding bronchoscopy, * will ask if bronchoscopy needed or not * doubt pt is good candidate for any further chemo but will consult oncology * medication reviewed as below * symptomatic treatment. Review of Systems - Review of Systems ENT: negative: Ear Pain, Ear Discharge, Nose Pain, Nose Discharge, Nose Congestion, Mouth Pain, Mouth Swelling, Throat Pain, Throat Swelling, Other Respiratory: negative: Cough, Dry, Shortness of Breath, Hemoptysis, SOB with Excertion, Pleuritic Pain, Sputum, Wheezing Cardiovascular: negative: chest pain, palpitations, orthopnea, paroxysmal nocturnal dyspnea, edema, light headedness, other Gastrointestinal: negative: Nausea, Vomiting, Abdominal Pain, Diarrhea, Constipation, Melena, Hematochezia, Other Genitourinary: negative: Dysuria, Frequency, Incontinence, Hematuria, Retention , Other Musculoskeletal: negative: Neck Pain, Shoulder Pain, Arm Pain, Back Pain, Hand Pain, Leg Pain, Foot Pain, Other - Medications/Allergies Allergies/Adverse Reactions: Allergies Allergy/AdvReac Type Severity Reaction Status Date / Time No Known Allergies Allergy Verified 06/14/15 19:57 Medications: Current Medications Acetaminophen (Tylenol) 650 mg PO Q4H PRN PRN Reason: Headache/Fever/Mild Pain (1-3) Last Admin: 12/06/18 06:08 Dose: 650 mg Albuterol/Ipratropium (Duoneb) 3 ml NEB [id number] [facility] Last Admin: 12/07/18 07:00 Dose: 3 ml Albuterol/Ipratropium (Duoneb) 3 ml NEB Q2H PRN PRN Reason: SOB &/or Wheezing Aspirin (Ecotrin) 81 mg PO DAILY [facility] Last Admin: 12/07/18 08:34 Dose: 81 mg Budesonide (Pulmicort Neb Solution) 0.5 mg INH BID-RT [facility] Last Admin: 12/07/18 07:07 Dose: 0.5 mg Diltiazem HCl (Cardizem Sr) 90 mg PO BID [facility] Last Admin: 12/07/18 09:57 Dose: 90 mg Ezetimibe (Zetia) 10 mg PO HS [facility] Last Admin: 12/06/18 20:27 Dose: 10 mg Enoxaparin Sodium (Lovenox) 30 mg SC 0900 [facility] Last Admin: 12/07/18 08:34 Dose: Not Given Guaifenesin (Mucinex) 1,200 mg PO Q12HR [facility] Last Admin: 12/07/18 08:34 Dose: 1,200 mg Levofloxacin (Levaquin) 750 mg PO Q48H [facility] Last Admin: 12/07/18 06:14 Dose: 750 mg Levothyroxine Sodium (Synthroid) 50 mcg PO 0600 [facility] Last Admin: 12/07/18 06:14 Dose: 50 mcg Melatonin (Melatonin) 3 mg PO HS PRN PRN Reason: Insomnia Last Admin: 12/06/18 00:22 Dose: 3 mg Memantine (Namenda) 10 mg PO DAILY [facility] Last Admin: 12/07/18 08:34 Dose: 10 mg Metoprolol Succinate (Toprol Xl) 50 mg PO DAILY [facility] Last Admin: 12/07/18 08:34 Dose: 50 mg Ondansetron HCl (Zofran Odt) 4 mg PO Q6H PRN PRN Reason: Nausea/Vomiting Last Admin: 12/06/18 06:05 Dose: 4 mg Ondansetron HCl (Zofran) 4 mg IVP Q6H PRN PRN Reason: Nausea/Vomiting Last Admin: 12/05/18 12:53 Dose: 4 mg Prednisone (Prednisone) 40 mg PO DAILY [facility] Last Admin: 12/07/18 08:34 Dose: 40 mg Senna/Docusate Sodium (Senokot S) 2 tab PO BIDPRN PRN PRN Reason: Constipation Last Admin: 12/06/18 17:43 Dose: 2 tab Simvastatin (Zocor) 40 mg PO HS [facility] Last Admin: 12/06/18 20:27 Dose: 40 mg Sodium Chloride (Flush - Normal Saline) 10 ml IVF Q12HR [facility] Last Admin: 12/07/18 08:35 Dose: 10 ml Sodium Chloride (Flush - Normal Saline) 10 ml IVF PRN PRN PRN Reason: Saline Flush Temazepam (Restoril) 15 mg PO HSPRN PRN PRN Reason: Insomnia Last Admin: 12/06/18 20:28 Dose: 15 mg
[2018-12-07] MEDS: cloNIDine 0.1 MG TAB PO PRN (12:13)
[2018-12-07] MEDS: Ezetimibe 10 MG TAB PO SCH (20:06)
[2018-12-07] MEDS: Temazepam 15 MG CAP PO PRN (20:07)
[2018-12-07] MEDS: Simvastatin 20 MG TAB PO SCH (20:07)
--- NOTE | 2018-12-07 22:53 | CON ---
DATE OF CONSULTATION: REASON FOR CONSULTATION: Adenocarcinoma. HISTORY OF PRESENT ILLNESS: Ms. Avila is an 83-year-old female with past medical history of mild dementia, who over the past several months has had just a general decline in overall function. Over the last several days, she has gotten substantially short of breath. She presented to the emergency room for evaluation. A CT scan of the chest with IV contrast showed bilateral pleural effusions. There were extensive alveolar and interstitial parenchymal changes of the right lung worrisome for pneumonia. There was a 3.5 cm right hilar mass. There was mediastinal adenopathy. She had multiple bilateral pulmonary metastasis up to 1 cm in size. The patient had a thoracentesis of her right pleural effusion. Cytology showed malignant cells consistent with adenocarcinoma. There were no malignant cells on the cell block and the number cells were too small for additional testing. The patient has a remote history of breast cancer approximately 30 years ago, where she had mastectomy and breast reconstruction. She denies any significant weight loss. No fever or chills. No night sweats. No neurological changes. PAST MEDICAL HISTORY: 1. CVA in 2013. 2. Coronary artery disease. 3. Chronic kidney disease. 4. Hypothyroidism. 5. Hypertension. 6. Dyslipidemia. 7. Peripheral vascular disease. 8. Dementia. PAST SURGICAL HISTORY: 1. Cardiac stents. 2. Carotid stent placement. 3. Iliac stent placements. 4. Hip surgery. 5. Hysterectomy. 6. Left breast mastectomy and reconstruction. 7. Tonsillectomy. ALLERGIES: NO KNOWN DRUG ALLERGIES. HOME MEDICATIONS: 1. Lexapro 10 mg daily. 2. Zetia 10 mg daily. 3. Apresoline 25 mg b.i.d. 4. Lisinopril 20 mg daily. 5. Namenda 10 mg daily. 6. Simvastatin 40 mg daily. 7. Plavix 75 mg daily. 8. Synthroid 50 mcg daily. FAMILY HISTORY: Noncontributory. SOCIAL HISTORY: and lives with her daughter. She has a 50-pack year history of smoking, quit 2-3 years ago. No alcohol or illicit drug use. REVIEW OF SYSTEMS: A 10-point review of systems is negative except for noted in HPI. PHYSICAL EXAMINATION: VITAL SIGNS: Temperature 98.4, pulse is 68, respiratory rate 15, BP is 183/74. She is 93% on room air. GENERAL: This is a chronically ill-appearing female, in no acute distress. HEENT: Normocephalic, atraumatic. Pupils are equal and reactive to light. NECK: Supple. CV: Regular rate and rhythm. LUNGS: She has crackles in her right lung, posterior. ABDOMEN: Soft and nontender. Bowel sounds are positive. EXTREMITIES: No clubbing, cyanosis, or edema. SKIN: No rash. HEMATOLOGICAL: No petechiae or purpura. NEUROLOGICAL: Nonfocal. PSYCH: The patient repeats same questions consistent with dementia. PERTINENT LABS AND X-RAYS: Current WBCs 9.0, hemoglobin 10.4, hematocrit 32.7, platelet count 454,000, 93% neutrophils, 6% lymphocytes. Sodium is 132, potassium 5.1, chloride is 103, CO2 is 22, BUN is 33, creatinine 1.45, calcium is 9.4, phosphorus 4.3, magnesium 1.8, bilirubin 0.2, AST is 21, ALT is 19, alkaline phosphatase is 119. Serum total protein is 6.3, albumin 3.4, globulin 2.9. Radiology per HPI. ASSESSMENT: 1. Right hilar mass with mediastinal adenopathy. 2. Malignant pleural effusion, status post thoracentesis. 3. Adenocarcinoma, positive cytology. 4. Mild dementia. DISCUSSION: Case was discussed with Dr. Oliveira. The patient has widespread metastatic disease. There is no tissue available for mutational testing. Discussed possible bronchoscopy or mediastinoscopy with the patient and daughter. Discussed briefly chemotherapy and immunotherapy based on mutational studies. Daughter feels and the patient feels that she would poorly tolerate chemotherapy with her poor performance status and dementia. They are leaning toward focusing on quality of life and hospice. Dr. Oliveira will follow and decision will be made potentially tomorrow. Thank you for the consult. Job ID: [id number]
[2018-12-08 04:57] LABS: Anion Gap 14 mmol/L (10-20); BUN (Urea Nitrogen) 41 mg/dL (9.8-20.1); Calc. Creatinine Clearance 27 mL/min (70-130); Carbon Dioxide 25 mmol/L (23-31); Chloride 100 mmol/L (98-107); Estimated GFR-MDRD 32; Glucose 110 mg/dL (83-110); Magnesium 1.7 mg/dL (1.6-2.6); Potassium 4.4 mmol/L (3.5-5.1); Sodium 135 mmol/L (136-145)
[2018-12-08] MEDS: Levothyroxine Sodium 50 MCG TAB PO SCH (05:39)
[2018-12-08] MEDS: Budesonide 0.5 MG/2 ML NEB INH SCH (06:28)
[2018-12-08] MEDS: Enoxaparin Sodium 30 MG/0.3 ML SYRINGE SC SCH (08:43)
[2018-12-08] MEDS: Aspirin 81 mg Enteric Coated Tablet PO SCH (08:43)
[2018-12-08] MEDS: predniSONE 20 MG TAB PO SCH (08:44)
[2018-12-08] MEDS: guaiFENesin ER 600 MG TAB PO SCH (08:44)
[2018-12-08] MEDS: cloNIDine 0.1 MG TAB PO PRN (08:51)
[2018-12-08] MEDS: Senokot S 8.6-50 MG TAB PO PRN (08:55)
[2018-12-08] MEDS: Diltiazem HCl SR 90 mg Capsule PO SCH (08:55)
--- NOTE | 2018-12-08 11:07 | DIS ---
DATE OF ADMISSION: 11/28/2018 DATE OF DISCHARGE: 12/08/2018 PRIMARY CARE PHYSICIAN: Anayeli Tamayo, DO DISCHARGE DISPOSITION: Home with home hospice. PRIMARY DISCHARGE DIAGNOSES: Metastatic adenocarcinoma of lung, acute on chronic diastolic heart failure, acute respiratory failure with hypoxia, mediastinal lymphadenopathy, multifocal pneumonia, physical deconditioning, pleural effusion, hyperkalemia. SECONDARY DISCHARGE DIAGNOSES: Senile dementia, paroxysmal atrial fibrillation, hypothyroidism, history of cerebrovascular accident, dyslipidemia, chronic kidney disease stage 3, anxiety and depression, pulmonary hypertension. PRIMARY PROCEDURE/OPERATION: Thoracentesis was performed by Dr. Delgado. RADIOLOGICAL INVESTIGATION: Chest x-ray, CT chest, echocardiography. SIGNIFICANT LABORATORY DATA: Hemoglobin 10.4, O2 of 56.1, creatinine 1.55. Pleural fluid cytology report came back positive for adenocarcinoma. Culture remained negative. DISCHARGE MEDICATIONS: 1. Lexapro 10 mg p.o. at bedtime. 2. Zetia 10 mg p.o. at bedtime. 3. Hydralazine 25 mg b.i.d. 4. Lisinopril 20 mg daily. 5. Namenda 10 mg p.o. daily. 6. Zocor 40 mg p.o. at bedtime. 7. Aspirin 81 mg daily. 8. Pulmicort nebulization b.i.d. 9. Plavix 75 mg daily. 10. Cardizem CD 90 mg b.i.d. 11. Mucinex 600 mg t.i.d. 12. Levaquin 750 mg every other day 3 tablets. 13. Synthroid 150 mcg p.o. daily. 14. Toprol-XL 100 mg p.o. daily. 15. Prednisone 40 mg p.o. daily for 7 days. CONTRAINDICATION: None. CODE STATUS: DNR. INPATIENT WOOD MECHANIST: Dr. Delgado was following while in hospital. Dr. Agustin was consulted while in hospital. TEST RESULTS PENDING ON DISCHARGE: None. ALLERGIES: NO KNOWN DRUG ALLERGIES. DISCHARGE PLAN: The patient is planned for discharge to home with home hospice. Subsequently, the patient will follow up with primary care physician. HOSPITAL COURSE: An 83-year-old female with above-mentioned medical problem, who was admitted by Dr. Marquez. Please see his H and P for further details. The patient was admitted for increasing shortness of breath and increasing weakness. She was found with acute respiratory failure with hypoxia. There was multifocal pneumonia on x-ray. Initially, CT chest showed pleural effusion as well as metastasis. Lung cancer was suspected. The patient underwent thoracentesis and pleural fluid report came back positive for adenocarcinoma. This patient was also planned for bronchoscopy to get tissue diagnosis if her pleural effusion is negative, but pleural effusion reported adenocarcinoma and that is why bronchoscopy was not done and the patient's family member were not interested in going for any aggressive intervention. This patient has significant physical deconditioning and she cannot tolerate her chemotherapy. Family member was given option of treatment, but they declined treatment option and they recommend comfort care and hospice care and that is why with help of briefcase sewer, we arranged hospice at home. Initially, there was plan for going to snf home versus a swing bed, but the patient did not want to go there and rather they wanted to go home. While in hospital, she was weak, but by the time of discharge, her condition slightly improved as well. By the time of discharge, her oxygen level was stabilized. She was tolerating all her medication. Cardiology was following for diastolic heart failure and atrial fibrillation with RVR and above-mentioned medication was adjusted. All new medication prescription sent to her pharmacy. At this point, our briefcase sewer will work with her to arrange home hospice today. Otherwise, the patient is medically stable for discharge. I have seen and examined the patient at bedside today. Plan of care discussed with the patient and family member and they all agreed with the plan. Job ID: [id number]
--- NOTE | 2018-12-08 11:08 | PDOC.PN ---
- Subjective Encounter Start Date: 12/08/18 Encounter Start Time: 07:35 Patient seen and examined. No new complaints. No overnight events - Objective Resuscitation Status - Order Detail: 11/29/18 08:45 Resuscitation Status Routine Resuscitation Status: DNAR: NO Resuscitation Discussed with: Patients daughter who has medical power of deputy county attorney MAR Reviewed: Yes Vital Signs & Weight: Vital Signs (12 hours) Temp Pulse Resp BP BP Pulse Ox 12/08/18 10:31 69 17 134/59 L 93 L 12/08/18 08:51 195/86 H 12/08/18 07:51 97.5 F L 71 17 181/77 H 93 L 12/08/18 06:33 95 12/08/18 06:25 61 20 90 L 12/08/18 04:00 97.7 F 63 20 162/91 H 91 L Weight Weight 133 lb 14.4 oz I&O: 12/07/18 12/08/18 12/09/18 06:59 06:59 06:59 Intake Total 720 240 Output Total 1400 800 Balance -680 -560 Result Diagrams: 12/04/18 05:00 12/08/18 04:15 EKG Reviewed by me: Yes Phys Exam - Physical Examination Constitutional: NAD HEENT: PERRLA, moist MMs, sclera anicteric Neck: no JVD, supple Respiratory: no wheezing, no rales, no rhonchi Cardiovascular: no significant murmur, irregular Gastrointestinal: soft, non-tender, no distention Musculoskeletal: no edema, pulses present Neurological: non-focal, normal sensation Lymphatic: no nodes Psychiatric: normal affect Skin: no rash, normal turgor Dx/Plan (1) Acute on chronic diastolic ACC/AHA stage C congestive heart failure Code(s): I50.33 - ACUTE ON CHRONIC DIASTOLIC (CONGESTIVE) HEART FAILURE Status : Acute (2) Acute respiratory failure with hypoxia Code(s): J96.01 - ACUTE RESPIRATORY FAILURE WITH HYPOXIA Status: Acute Comment: (3) Lung cancer Code(s): C34.90 - MALIGNANT NEOPLASM OF UNSP PART OF UNSP BRONCHUS OR LUNG Status: Suspected (4) Mediastinal adenopathy Code(s): R59.0 - LOCALIZED ENLARGED LYMPH NODES Status: Acute (5) Multifocal pneumonia Code(s): J18.9 - PNEUMONIA, UNSPECIFIED ORGANISM Status: Acute (6) Physical deconditioning Code(s): R53.81 - OTHER MALAISE Status: Acute (7) Pleural effusion Code(s): J90 - PLEURAL EFFUSION, NOT ELSEWHERE CLASSIFIED Status: Acute Comment: S/p right thoracentesis. (8) Pulmonary HTN Code(s): I27.20 - PULMONARY HYPERTENSION, UNSPECIFIED Status: Acute (9) Anxiety and depression Code(s): F41.9 - ANXIETY DISORDER, UNSPECIFIED; F32.9 - MAJOR DEPRESSIVE DISORDER, SINGLE EPISODE, UNSPECIFIED Status: Chronic (10) CKD (chronic kidney disease) stage 3, GFR 30-59 ml/min Code(s): N18.3 - CHRONIC KIDNEY DISEASE, STAGE 3 (MODERATE) Status: Chronic Comment: Stable. (11) Dyslipidemia Code(s): E78.5 - HYPERLIPIDEMIA, UNSPECIFIED Status: Chronic (12) H/O: CVA (cerebrovascular accident) Code(s): Z86.73 - PRSNL HX OF TIA (TIA), AND CEREB INFRC W/O RESID DEFICITS Status: Chronic (13) Hypothyroidism Code(s): E03.9 - HYPOTHYROIDISM, UNSPECIFIED Status: Chronic (14) Paroxysmal atrial fibrillation Code(s): I48.0 - PAROXYSMAL ATRIAL FIBRILLATION Status: Chronic Comment: (15) Senile dementia Code(s): F03.90 - UNSPECIFIED DEMENTIA WITHOUT BEHAVIORAL DISTURBANCE Status: Chronic (16) Hyperkalemia Code(s): E87.5 - HYPERKALEMIA Status: Resolved Comment: (17) Adenocarcinoma Code(s): C80.1 - MALIGNANT (PRIMARY) NEOPLASM, UNSPECIFIED Status: Acute - Plan cont current plan of care, plan discussed w/ family * medication reviewed as below * symptomatic treatment * pt and family decided to go home with home hospice. Review of Systems - Review of Systems ENT: negative: Ear Pain, Ear Discharge, Nose Pain, Nose Discharge, Nose Congestion, Mouth Pain, Mouth Swelling, Throat Pain, Throat Swelling, Other Respiratory: negative: Cough, Dry, Shortness of Breath, Hemoptysis, SOB with Excertion, Pleuritic Pain, Sputum, Wheezing Cardiovascular: negative: chest pain, palpitations, orthopnea, paroxysmal nocturnal dyspnea, edema, light headedness, other Gastrointestinal: negative: Nausea, Vomiting, Abdominal Pain, Diarrhea, Constipation, Melena, Hematochezia, Other Genitourinary: negative: Dysuria, Frequency, Incontinence, Hematuria, Retention , Other Musculoskeletal: negative: Neck Pain, Shoulder Pain, Arm Pain, Back Pain, Hand Pain, Leg Pain, Foot Pain, Other Skin: negative: Rash, Lesions, Marquise, Bruising, Other - Medications/Allergies Allergies/Adverse Reactions: Allergies Allergy/AdvReac Type Severity Reaction Status Date / Time No Known Allergies Allergy Verified 06/14/15 19:57 Medications: Current Medications Acetaminophen (Tylenol) 650 mg PO Q4H PRN PRN Reason: Headache/Fever/Mild Pain (1-3) Last Admin: 12/06/18 06:08 Dose: 650 mg Albuterol/Ipratropium (Duoneb) 3 ml NEB [id number] [facility] Last Admin: 12/08/18 06:25 Dose: 3 ml Albuterol/Ipratropium (Duoneb) 3 ml NEB Q2H PRN PRN Reason: SOB &/or Wheezing Aspirin (Ecotrin) 81 mg PO DAILY [facility] Last Admin: 12/08/18 08:43 Dose: 81 mg Budesonide (Pulmicort Neb Solution) 0.5 mg INH BID-RT [facility] Last Admin: 12/08/18 06:28 Dose: 0.5 mg Clonidine (Catapres) 0.1 mg PO Q4H PRN PRN Reason: SBP Greater Than 170 Last Admin: 12/08/18 08:51 Dose: 0.1 mg Diltiazem HCl (Cardizem Sr) 90 mg PO BID [facility] Last Admin: 12/08/18 08:55 Dose: 90 mg Ezetimibe (Zetia) 10 mg PO HS [facility] Last Admin: 12/07/18 20:06 Dose: 10 mg Enoxaparin Sodium (Lovenox) 30 mg SC 0900 [facility] Last Admin: 12/08/18 08:43 Dose: 30 mg Guaifenesin (Mucinex) 1,200 mg PO Q12HR [facility] Last Admin: 12/08/18 08:44 Dose: 1,200 mg Levofloxacin (Levaquin) 750 mg PO Q48H [facility] Last Admin: 12/07/18 06:14 Dose: 750 mg Levothyroxine Sodium (Synthroid) 50 mcg PO 0600 [facility] Last Admin: 12/08/18 05:39 Dose: 50 mcg Melatonin (Melatonin) 3 mg PO HS PRN PRN Reason: Insomnia Last Admin: 12/06/18 00:22 Dose: 3 mg Memantine (Namenda) 10 mg PO DAILY [facility] Last Admin: 12/08/18 08:44 Dose: 10 mg Metoprolol Succinate (Toprol Xl) 100 mg PO DAILY [facility] Last Admin: 12/08/18 08:44 Dose: 100 mg Ondansetron HCl (Zofran Odt) 4 mg PO Q6H PRN PRN Reason: Nausea/Vomiting Last Admin: 12/06/18 06:05 Dose: 4 mg Ondansetron HCl (Zofran) 4 mg IVP Q6H PRN PRN Reason: Nausea/Vomiting Last Admin: 12/05/18 12:53 Dose: 4 mg Prednisone (Prednisone) 40 mg PO DAILY [facility] Last Admin: 12/08/18 08:44 Dose: 40 mg Senna/Docusate Sodium (Senokot S) 2 tab PO BIDPRN PRN PRN Reason: Constipation Last Admin: 12/08/18 08:55 Dose: 2 tab Simvastatin (Zocor) 40 mg PO HS [facility] Last Admin: 12/07/18 20:07 Dose: 40 mg Sodium Chloride (Flush - Normal Saline) 10 ml IVF Q12HR [facility] Last Admin: 12/08/18 08:45 Dose: 10 ml Sodium Chloride (Flush - Normal Saline) 10 ml IVF PRN PRN PRN Reason: Saline Flush Temazepam (Restoril) 15 mg PO HSPRN PRN PRN Reason: Insomnia Last Admin: 12/07/18 20:07 Dose: 15 mg
--- NOTE | 2018-12-08 11:16 | PDOC.CTH ---
Cardiology Progress Note - Subjective The pt seen and examined. No overnight events. No cardiac complaints. - Objective Vital Signs Temp Pulse Resp BP BP Pulse Ox 12/08/18 10:31 69 17 134/59 L 93 L 12/08/18 08:51 195/86 H 12/08/18 07:51 97.5 F L 71 17 181/77 H 93 L 12/08/18 06:33 95 12/08/18 06:25 61 20 90 L 12/08/18 04:00 97.7 F 63 20 162/91 H 91 L Weight 133 lb 14.4 oz 12/07/18 12/08/18 12/09/18 06:59 06:59 06:59 Intake Total 720 240 Output Total 1400 800 Balance -680 -560 - Labs Result Diagrams: 12/04/18 05:00 12/08/18 04:15 Troponin/CKMB Troponin I 0.013 ng/mL (< 0.028) 12/03/18 13:41
[2018-12-08 11:26] VITALS: BP 126/62; TEMP 97.4
== END 2018-12-08 16:52 | disposition hospice, home (50) | DRG 180 ==
LOC: ERS 21:49 → ERHOLD 23:04 → 2SE 11-29 05:25 → 2NO 12-04 20:57
PROVIDERS: ADMIT Hospitalist; ATTEND Hospitalist
PROC: 0W993ZZ Drainage of Right Pleural Cavity, Percutaneous Approach (ICD-10-PCS; principal; 2018-12-03)
DX: C78.01 Secondary malignant neoplasm of right lung (principal); J96.01 Acute respiratory failure with hypoxia; I50.33 Acute on chronic diastolic (congestive) heart failure; J18.1 Lobar pneumonia, unspecified organism; I13.0 Hypertensive heart and chronic kidney disease with heart failure and stage 1 through stage 4 chronic kidney disease, or unspecified chronic kidney disease; I24.8 Other forms of acute ischemic heart disease; R78.81 Bacteremia; J91.0 Malignant pleural effusion; J44.0 Chronic obstructive pulmonary disease with (acute) lower respiratory infection; F03.90 Unspecified dementia, unspecified severity, without behavioral disturbance, psychotic disturbance, mood disturbance, and anxiety; C50.912 Malignant neoplasm of unspecified site of left female breast; I25.10 Atherosclerotic heart disease of native coronary artery without angina pectoris; E03.9 Hypothyroidism, unspecified; I73.9 Peripheral vascular disease, unspecified; E87.5 Hyperkalemia; D50.9 Iron deficiency anemia, unspecified; I48.0 Paroxysmal atrial fibrillation; N18.3 Chronic kidney disease, stage 3 (moderate); E78.00 Pure hypercholesterolemia, unspecified; F41.9 Anxiety disorder, unspecified; F32.9 Major depressive disorder, single episode, unspecified; R59.1 Generalized enlarged lymph nodes; Z87.891 Personal history of nicotine dependence; Z86.73 Personal history of transient ischemic attack (TIA), and cerebral infarction without residual deficits; Z79.01 Long term (current) use of anticoagulants; Z79.82 Long term (current) use of aspirin; Z90.710 Acquired absence of both cervix and uterus; Z79.899 Other long term (current) drug therapy; Z90.12 Acquired absence of left breast and nipple
CPT/HCPCS: 36415; 36416; 71046; 71250; 80048; 80069; 82728; 82805; 82945; 83540; 83550; 83615; 83735; 83880; 83986; 84157; 84484; 85025; 85060; 87040; 87070; 87116; 87205; 87206; 87633; 88112; 88305; 89051; 90471; 90670; 93306; 94640; 96361; 96365; G0009; J0456; J0696; J1650; J1940; J1956; J2270; J2405; J3490; J7050; J7512; J7620; J7626; Q0162